=== PATIENT | female | born 1995 | race Caucasian/White ===

== ENCOUNTER 2017-10-09 02:25 | Emergency (ER) | payer OTHER ==
[~2017-10-09] VITALS: Ht 167.6 cm; Wt 124.7 kg
[~2017-10-09 02:25] MED LIST: (None)20 M1 PO; AZIT250 PO; BENTYL20 MG PO; CIPR500 PO; CIPRO500 MG PO; CLIN300 PO; CRUTCH3 XX; CYCL10 PO; Cipro250 MG PO; Cipro500 MG PO; Crutch1 EACH MISC; DIPATR PO; HYDR1TAB94 PO; IBUP600 PO; IBUP800 PO; Mobic7.5 MG PO; Naprosyn500 MG PO; Norco 5-325 Ta1 EACH PO; PRED20 PO; PROC10 PO; PROM25 PO; Pepcid40 MG PO; Percocet 5-3251 EACH PO; Prednisone20 MG PO; RANI150 PO; Synthroid88 MCG PO; Ultram50 MG PO; Vibramycin100 MG PO; Zantac150 MG PO; Zofran Odt4 MG PO; Zofran Odt4 MG SL; Zofran4 MG PO
[2018-02-25] MEDS ORDERED: Omeprazole20 M1 PO (22:43)
[2018-07-17] MEDS ORDERED: CYCL10 PO (00:54)
== END 2017-10-09 04:20 | disposition home or self-care (01) ==
LOC: ER 02:25
DX: S06.0X1A Concussion with loss of consciousness of 30 minutes or less, initial encounter (principal); S29.012A Strain of muscle and tendon of back wall of thorax, initial encounter; E11.9 Type 2 diabetes mellitus without complications; J45.909 Unspecified asthma, uncomplicated; Z88.8 Allergy status to other drugs, medicaments and biological substances; Z88.1 Allergy status to other antibiotic agents; Z88.2 Allergy status to sulfonamides; W18.2XXA Fall in (into) shower or empty bathtub, initial encounter
CPT/HCPCS: 70450; 72070; 99284

== ENCOUNTER 2017-10-16 23:28 | Emergency (ER) | payer OTHER ==
[~2017-10-16] VITALS: Ht 165.1 cm; Wt 104.3 kg
[2018-02-25] MEDS ORDERED: Omeprazole20 M1 PO (22:43)
[2018-07-17] MEDS ORDERED: CYCL10 PO (00:54)
== END 2017-10-17 00:40 | disposition home or self-care (01) ==
LOC: ER 23:28
DX: S93.601A Unspecified sprain of right foot, initial encounter (principal); J45.909 Unspecified asthma, uncomplicated; E03.9 Hypothyroidism, unspecified; E11.9 Type 2 diabetes mellitus without complications; Z90.49 Acquired absence of other specified parts of digestive tract; Z90.89 Acquired absence of other organs; Z88.8 Allergy status to other drugs, medicaments and biological substances; Z88.1 Allergy status to other antibiotic agents; Z88.2 Allergy status to sulfonamides; V49.49XA Driver injured in collision with other motor vehicles in traffic accident, initial encounter
CPT/HCPCS: 73610; 73630; 99283

== ENCOUNTER 2017-11-05 18:32 | Emergency (ER) | payer OTHER ==
[~2017-11-05] VITALS: Ht 165.1 cm; Wt 98.0 kg
[2017-11-05] MEDS ORDERED: ALBU90OI INH (20:07)
[2018-02-25] MEDS ORDERED: Omeprazole20 M1 PO (22:43)
[2018-07-17] MEDS ORDERED: CYCL10 PO (00:54)
== END 2017-11-05 20:10 | disposition home or self-care (01) ==
LOC: ER 18:32
DX: B34.9 Viral infection, unspecified (principal); J45.909 Unspecified asthma, uncomplicated; E03.9 Hypothyroidism, unspecified; E11.9 Type 2 diabetes mellitus without complications; F17.210 Nicotine dependence, cigarettes, uncomplicated; Z88.8 Allergy status to other drugs, medicaments and biological substances; Z88.1 Allergy status to other antibiotic agents; Z88.2 Allergy status to sulfonamides
CPT/HCPCS: 71046; 94640; 99283

== ENCOUNTER 2017-12-25 21:23 | Emergency (ER) | payer OTHER ==
[~2017-12-25] VITALS: Ht 167.6 cm; Wt 99.8 kg
[~2017-12-25 21:23] MED LIST changes: +ALBU90OI INH
[2017-12-25] MEDS ORDERED: CYCL10 PO (22:06)
[2018-02-25] MEDS ORDERED: Omeprazole20 M1 PO (22:43)
[2018-07-17] MEDS ORDERED: CYCL10 PO (00:54)
== END 2017-12-25 22:22 | disposition home or self-care (01) ==
LOC: ER 21:23
DX: M54.41 Lumbago with sciatica, right side (principal); J45.909 Unspecified asthma, uncomplicated; E11.9 Type 2 diabetes mellitus without complications; F17.210 Nicotine dependence, cigarettes, uncomplicated; Z88.8 Allergy status to other drugs, medicaments and biological substances; Z88.1 Allergy status to other antibiotic agents; Z88.2 Allergy status to sulfonamides; Z79.51 Long term (current) use of inhaled steroids
CPT/HCPCS: 96372; 99283; J1885

== ENCOUNTER 2018-01-28 18:19 | Emergency (ER) | payer OTHER ==
[~2018-01-28] VITALS: Ht 167.6 cm; Wt 99.8 kg
[2018-01-28 18:56] LABS: BASOPHILS ABSOLUTE AUTO 0.13 K/mm3 (0.00-0.23); BASOPHILS PERCENT AUTO 1 % (0-2); EOSINOPHILS ABSOLUTE AUTO 0.32 K/mm3 (0.00-0.68); EOSINOPHILS PERCENT AUTO 2 % (0-6); Hematocrit 40.7 % (33.0-51.0); Hemoglobin 13.3 g/dL (11.5-16.0); IMMATURE GRAN ABSOLUTE AUTO 0.04 K/mm3 (0.00-0.10); IMMATURE GRAN PERCENT AUTO 0 % (0-1); LYMPHOCYTES PERCENT AUTO 30 % (21-46); MONOCYTES ABSOLUTE AUTO 0.89 K/mm3 (0.16-1.47); MONOCYTES PERCENT AUTO 7 % (4-13); Mean Corpuscular HGB 28.1 pg (26.0-34.0); Mean Corpuscular HGB Conc 32.7 g/dL (31.5-36.5); Mean Corpuscular Volume 86 fL (80-100); Mean Platelet Volume 8.6 fL (9.1-12.4); NEUTROPHILS ABSOLUTE AUTO 7.92 K/mm3 (1.96-9.15); NEUTROPHILS PERCENT AUTO 60 % (41-73); Platelet Count 355 K/mm3 (150-400); RDW Coefficient Variation 13.3 % (11.7-14.2); RDW Standard Deviation 41.9 fL (35.1-46.3); Red Blood Cell Count 4.73 M/mm3 (3.80-5.20)
[2018-01-28 19:08] LABS: Source, Urine Clean Catch
[2018-01-28 19:11] LABS: Appearance, Urine Hazy (Clear); Bilirubin, Urine Neg (Neg); Blood, Urine 1+ (Neg); Color, Urine Yellow (P-Yellow); Glucose Qualitative, Urine Neg (Neg); Ketones, Urine 1+ (Neg); Leukocyte Esterase, Urine 1+ (Neg); Nitrite, Urine Neg (Neg); Protein, Urine 1+ (Neg); Specific Gravity, Urine 1.025 (1.003-1.022); Urobilinogen, Urine NORM (Normal)
[2018-01-28 19:20] LABS: Alanine Aminotransfer (ALT/SGP 39 U/L (12-78); Albumin, Blood 3.5 g/dL (3.4-5.0); Albumin/Globulin Ratio 0.9 (0.8-1.8); Alk Phos 67 U/L (50-136); Anion Gap 7 mmol/L (6-16); Aspartate Aminotrans (AST/SGOT 21 U/L (12-37); Bilirubin, Total 0.2 mg/dL (0.1-1.0); Blood Urea Nitrogen 8 mg/dL (8-24); Bun/Creatinine Ratio 9.4 (12.0-20.0); CO2, Blood 21 mmol/L (21-32); Chloride, Blood 112 mmol/L (98-108); Creatinine, Blood 0.85 mg/dL (0.40-1.00); Globulin, Blood 3.8 g/dL (2.2-4.0); Glomerular Filtration Rate >60 (60-); Glucose, Blood 92 mg/dL (70-99); Potassium, Blood 3.9 mmol/L (3.5-5.5); Sodium, Blood 140 mmol/L (136-145); Total Protein, Blood 7.3 g/dL (6.4-8.2); Troponin I <0.015 ng/mL (0.000-0.040)
[2018-01-28 20:02] LABS: Free Thyroxine 0.85 ng/dL (0.70-1.60)
[2018-01-28 20:03] LABS: Bacteria Many /hpf; Squamous Epithelial Cells Mod /hpf (Few)
[2018-01-28 20:05] LABS: Thyroid Stimulating Hormone 5.65 uIU/mL (0.360-4.800); Triiodothyronine, Free 2.82 pg/mL (2.18-3.98)
[2018-01-28] MEDS ORDERED: Zofran Odt4 MG PO (20:21)
== END 2018-01-28 20:28 | disposition home or self-care (01) ==
LOC: ER 18:19
PROVIDERS: Emergency Medicine
DX: R42 Dizziness and giddiness (principal); R11.2 Nausea with vomiting, unspecified; D72.829 Elevated white blood cell count, unspecified; J45.909 Unspecified asthma, uncomplicated; E11.9 Type 2 diabetes mellitus without complications; E03.9 Hypothyroidism, unspecified; F17.210 Nicotine dependence, cigarettes, uncomplicated; Z88.8 Allergy status to other drugs, medicaments and biological substances; Z88.1 Allergy status to other antibiotic agents; Z88.2 Allergy status to sulfonamides; Z79.51 Long term (current) use of inhaled steroids
CPT/HCPCS: 36415; 71046; 80053; 81001; 81025; 84439; 84443; 84481; 84484; 85025; 85379; 87086; 93005; 93010; 96361; 96374; 99283; J2405; J7030

== ENCOUNTER 2018-03-17 02:33 | Emergency (ER) | payer OTHER ==
[~2018-03-17] VITALS: Ht 167.6 cm; Wt 104.3 kg
[~2018-03-17 02:33] MED LIST changes: +Omeprazole20 M1 PO
== END 2018-03-17 05:45 | disposition home or self-care (01) ==
LOC: ER 02:33
DX: T62.8X1A Toxic effect of other specified noxious substances eaten as food, accidental (unintentional), initial encounter (principal); R11.2 Nausea with vomiting, unspecified; E11.9 Type 2 diabetes mellitus without complications; F17.210 Nicotine dependence, cigarettes, uncomplicated; Z88.8 Allergy status to other drugs, medicaments and biological substances; Z88.1 Allergy status to other antibiotic agents; Z88.2 Allergy status to sulfonamides
CPT/HCPCS: 99283

== ENCOUNTER 2018-04-29 19:09 | Emergency (ER) | payer OTHER ==
[~2018-04-29] VITALS: Ht 167.6 cm; Wt 104.3 kg
[2018-04-29 20:11] LABS: BASOPHILS PERCENT AUTO 1 % (0-2); EOSINOPHILS PERCENT AUTO 2 % (0-6); Hematocrit 39.4 % (33.0-51.0); IMMATURE GRAN ABSOLUTE AUTO 0.04 K/mm3 (0.00-0.10); IMMATURE GRAN PERCENT AUTO 0 % (0-1); LYMPHOCYTES ABSOLUTE AUTO 3.63 K/mm3 (0.84-5.20); LYMPHOCYTES PERCENT AUTO 27 % (21-46); MONOCYTES ABSOLUTE AUTO 0.89 K/mm3 (0.16-1.47); MONOCYTES PERCENT AUTO 7 % (4-13); Mean Corpuscular HGB 28.3 pg (26.0-34.0); Mean Corpuscular Volume 86 fL (80-100); Mean Platelet Volume 8.6 fL (9.1-12.4); NEUTROPHILS PERCENT AUTO 64 % (41-73); Platelet Count 352 K/mm3 (150-400); RDW Coefficient Variation 13.3 % (11.7-14.2); RDW Standard Deviation 41.3 fL (35.1-46.3); White Blood Cell Count 13.56 K/mm3 (4.00-11.30)
[2018-04-29 20:32] LABS: Alanine Aminotransfer (ALT/SGP 28 U/L (12-78); Albumin, Blood 3.5 g/dL (3.4-5.0); Albumin/Globulin Ratio 0.9 (0.8-1.8); Alk Phos 68 U/L (50-136); Anion Gap 9 mmol/L (6-16); Aspartate Aminotrans (AST/SGOT 20 U/L (12-37); Bilirubin, Total 0.1 mg/dL (0.1-1.0); Blood Urea Nitrogen 13 mg/dL (8-24); Bun/Creatinine Ratio 15.2 (12.0-20.0); CO2, Blood 22 mmol/L (21-32); Calcium, Blood 8.2 mg/dL (8.5-10.1); Chloride, Blood 106 mmol/L (98-108); Creatinine, Blood 0.86 mg/dL (0.40-1.00); Globulin, Blood 3.8 g/dL (2.2-4.0); Glomerular Filtration Rate >60 (60-); Glucose, Blood 86 mg/dL (70-99); Potassium, Blood 4.4 mmol/L (3.5-5.5); Sodium, Blood 137 mmol/L (136-145); Total Protein, Blood 7.3 g/dL (6.4-8.2)
[2018-04-29] MEDS ORDERED: COMPAZINE10 MG PO (20:39)
== END 2018-04-29 21:16 | disposition home or self-care (01) ==
LOC: ER 19:09
PROVIDERS: Emergency Medicine
DX: R10.12 Left upper quadrant pain (principal); K64.9 Unspecified hemorrhoids; J45.909 Unspecified asthma, uncomplicated; E03.9 Hypothyroidism, unspecified; E11.9 Type 2 diabetes mellitus without complications; F17.210 Nicotine dependence, cigarettes, uncomplicated; Z79.899 Other long term (current) drug therapy
CPT/HCPCS: 36415; 46600; 80053; 83690; 85025; 96361; 96374; 96375; 99284-25; J0780; J1200; J3010; J7030

== ENCOUNTER 2018-05-14 23:04 | Emergency (ER) | payer OTHER ==
[~2018-05-14] VITALS: Ht 167.6 cm; Wt 104.3 kg
[~2018-05-14 23:04] MED LIST changes: +COMPAZINE10 MG PO
[2018-05-15 01:53] LABS: BASOPHILS ABSOLUTE AUTO 0.11 K/mm3 (0.00-0.23); BASOPHILS PERCENT AUTO 1 % (0-2); EOSINOPHILS ABSOLUTE AUTO 0.18 K/mm3 (0.00-0.68); EOSINOPHILS PERCENT AUTO 1 % (0-6); Hematocrit 38.5 % (33.0-51.0); Hemoglobin 12.8 g/dL (11.5-16.0); IMMATURE GRAN ABSOLUTE AUTO 0.06 K/mm3 (0.00-0.10); IMMATURE GRAN PERCENT AUTO 0 % (0-1); LYMPHOCYTES ABSOLUTE AUTO 4.37 K/mm3 (0.84-5.20); LYMPHOCYTES PERCENT AUTO 24 % (21-46); MONOCYTES ABSOLUTE AUTO 1.41 K/mm3 (0.16-1.47); MONOCYTES PERCENT AUTO 8 % (4-13); Mean Corpuscular HGB 28.2 pg (26.0-34.0); Mean Corpuscular HGB Conc 33.2 g/dL (31.5-36.5); Mean Corpuscular Volume 85 fL (80-100); Mean Platelet Volume 8.4 fL (9.1-12.4); NEUTROPHILS PERCENT AUTO 66 % (41-73); Platelet Count 334 K/mm3 (150-400); RDW Coefficient Variation 13.4 % (11.7-14.2); RDW Standard Deviation 41.7 fL (35.1-46.3); Red Blood Cell Count 4.54 M/mm3 (3.80-5.20); White Blood Cell Count 17.93 K/mm3 (4.00-11.30)
[2018-05-15 02:10] LABS: Alanine Aminotransfer (ALT/SGP 34 U/L (12-78); Albumin, Blood 3.7 g/dL (3.4-5.0); Alk Phos 71 U/L (50-136); Anion Gap 9 mmol/L (6-16); Aspartate Aminotrans (AST/SGOT 18 U/L (12-37); Bilirubin, Total 0.3 mg/dL (0.1-1.0); Blood Urea Nitrogen 9 mg/dL (8-24); Bun/Creatinine Ratio 12.3 (12.0-20.0); CO2, Blood 22 mmol/L (21-32); Calcium, Blood 8.2 mg/dL (8.5-10.1); Chloride, Blood 107 mmol/L (98-108); Creatinine, Blood 0.73 mg/dL (0.40-1.00); Globulin, Blood 3.6 g/dL (2.2-4.0); Glomerular Filtration Rate >60 (60-); Glucose, Blood 79 mg/dL (70-99); Potassium, Blood 3.9 mmol/L (3.5-5.5); Sodium, Blood 138 mmol/L (136-145); Total Protein, Blood 7.3 g/dL (6.4-8.2)
[2018-05-15] MEDS ORDERED: Robaxin500 MG PO (03:29)
== END 2018-05-15 03:39 | disposition home or self-care (01) ==
LOC: ER 23:04
PROVIDERS: Emergency Medicine
DX: M54.5 Low back pain (principal); M79.604 Pain in right leg; M79.605 Pain in left leg; J45.909 Unspecified asthma, uncomplicated; E03.9 Hypothyroidism, unspecified; E11.9 Type 2 diabetes mellitus without complications; F17.210 Nicotine dependence, cigarettes, uncomplicated; Z88.8 Allergy status to other drugs, medicaments and biological substances; Z88.2 Allergy status to sulfonamides; Z88.1 Allergy status to other antibiotic agents
CPT/HCPCS: 36415; 80053; 81000; 81025; 85025; 85651; 99283

== ENCOUNTER 2018-05-29 19:45 | Emergency (ER) | payer OTHER ==
[~2018-05-29] VITALS: Ht 167.6 cm; Wt 104.3 kg
[~2018-05-29 19:45] MED LIST changes: +Robaxin500 MG PO
== END 2018-05-29 20:30 | disposition home or self-care (01) ==
LOC: ER 19:45
DX: S61.411A Laceration without foreign body of right hand, initial encounter (principal); W26.8XXA Contact with other sharp object(s), not elsewhere classified, initial encounter; Z88.8 Allergy status to other drugs, medicaments and biological substances; Z88.2 Allergy status to sulfonamides; Z88.1 Allergy status to other antibiotic agents; J45.909 Unspecified asthma, uncomplicated; E03.9 Hypothyroidism, unspecified; E11.9 Type 2 diabetes mellitus without complications; F17.200 Nicotine dependence, unspecified, uncomplicated
CPT/HCPCS: 12001; 99282

== ENCOUNTER 2018-06-05 22:08 | Emergency (ER) | payer OTHER ==
[~2018-06-05] VITALS: Ht 167.6 cm; Wt 106.1 kg
[2018-06-05 23:52] LABS: Anion Gap 8 mmol/L (6-16); Blood Urea Nitrogen 14 mg/dL (8-24); Bun/Creatinine Ratio 17.4 (12.0-20.0); CO2, Blood 22 mmol/L (21-32); Calcium, Blood 8.2 mg/dL (8.5-10.1); Chloride, Blood 107 mmol/L (98-108); Glomerular Filtration Rate >60 (60-); Glucose, Blood 97 mg/dL (70-99); Potassium, Blood 4.3 mmol/L (3.5-5.5); Sodium, Blood 137 mmol/L (136-145)
[2018-06-06] MEDS ORDERED: Zofran Odt4 MG PO (01:17)
[2018-06-06] MEDS ORDERED: Augmentin 875-1 EACH PO (01:17)
== END 2018-06-06 02:22 | disposition home or self-care (01) ==
LOC: ER 22:08
PROVIDERS: Emergency Medicine
DX: J18.9 Pneumonia, unspecified organism (principal); R11.2 Nausea with vomiting, unspecified; E11.9 Type 2 diabetes mellitus without complications; F17.210 Nicotine dependence, cigarettes, uncomplicated; Z88.8 Allergy status to other drugs, medicaments and biological substances; Z88.1 Allergy status to other antibiotic agents; Z88.2 Allergy status to sulfonamides
CPT/HCPCS: 36415; 71046; 80048; 81000; 81025; 94640; 96361; 96374; 96375; 99284-25; J2405; J2930; J7030

== ENCOUNTER 2018-06-10 20:41 | Observation (INO) | payer OTHER ==
[~2018-06-10] VITALS: Ht 167.6 cm; Wt 113.5 kg
[~2018-06-10 20:41] MED LIST changes: +Augmentin 875-1 EACH PO
[2018-06-10] MEDS ORDERED: PRED20 PO (20:47)
[2018-06-10 21:33] LABS: BASOPHILS ABSOLUTE AUTO 0.11 K/mm3 (0.00-0.23); BASOPHILS PERCENT AUTO 1 % (0-2); EOSINOPHILS PERCENT AUTO 0 % (0-6); Hematocrit 41.2 % (33.0-51.0); Hemoglobin 13.8 g/dL (11.5-16.0); IMMATURE GRAN ABSOLUTE AUTO 0.19 K/mm3 (0.00-0.10); IMMATURE GRAN PERCENT AUTO 1 % (0-1); LYMPHOCYTES PERCENT AUTO 12 % (21-46); MONOCYTES ABSOLUTE AUTO 0.86 K/mm3 (0.16-1.47); MONOCYTES PERCENT AUTO 4 % (4-13); Mean Corpuscular HGB 28.1 pg (26.0-34.0); Mean Corpuscular HGB Conc 33.5 g/dL (31.5-36.5); Mean Corpuscular Volume 84 fL (80-100); Mean Platelet Volume 8.3 fL (9.1-12.4); NEUTROPHILS ABSOLUTE AUTO 20.14 K/mm3 (1.96-9.15); NEUTROPHILS PERCENT AUTO 83 % (41-73); Platelet Count 395 K/mm3 (150-400); RDW Standard Deviation 39.8 fL (35.1-46.3); Red Blood Cell Count 4.91 M/mm3 (3.80-5.20)
[2018-06-10 21:38] LABS: Alanine Aminotransfer (ALT/SGP 38 U/L (12-78); Albumin, Blood 3.6 g/dL (3.4-5.0); Albumin/Globulin Ratio 0.9 (0.8-1.8); Alk Phos 70 U/L (50-136); Anion Gap 10 mmol/L (6-16); Aspartate Aminotrans (AST/SGOT 14 U/L (12-37); Bilirubin, Total 0.2 mg/dL (0.1-1.0); Blood Urea Nitrogen 16 mg/dL (8-24); Bun/Creatinine Ratio 19.2 (12.0-20.0); CO2, Blood 21 mmol/L (21-32); Calcium, Blood 7.9 mg/dL (8.5-10.1); Chloride, Blood 107 mmol/L (98-108); Creatinine, Blood 0.83 mg/dL (0.40-1.00); Glomerular Filtration Rate >60 (60-); Glucose, Blood 101 mg/dL (70-99); Potassium, Blood 4.3 mmol/L (3.5-5.5); Sodium, Blood 138 mmol/L (136-145); Total Protein, Blood 7.6 g/dL (6.4-8.2)
[2018-06-11] MEDS ORDERED: Vitamin C100 M1 PO (00:17)
[2018-06-11 04:45] LABS: Hematocrit 40.8 % (33.0-51.0); Hemoglobin 13.5 g/dL (11.5-16.0); Mean Corpuscular HGB 27.5 pg (26.0-34.0); Mean Corpuscular HGB Conc 33.1 g/dL (31.5-36.5); Mean Corpuscular Volume 83 fL (80-100); Mean Platelet Volume 8.2 fL (9.1-12.4); Platelet Count 390 K/mm3 (150-400); RDW Standard Deviation 39.2 fL (35.1-46.3); Red Blood Cell Count 4.91 M/mm3 (3.80-5.20); White Blood Cell Count 25.46 K/mm3 (4.00-11.30)
[2018-06-11 04:48] LABS: Adenovirus Not Detected (NOT DETECT); Bordetella pertussis Not Detected (NOT DETECT); Chlamydophila pneumoniae Not Detected (NOT DETECT); Coronavirus 229E Not Detected (NOT DETECT); Coronavirus HKU1 Not Detected (NOT DETECT); Coronavirus NL63 Not Detected (NOT DETECT); Coronavirus OC43 Not Detected (NOT DETECT); Human Metapneumovirus Not Detected (NOT DETECT); Influenza A/2009-H1 Not Detected (NOT DETECT); Influenza A/H1 Not Detected (NOT DETECT); Influenza A/H3 Not Detected (NOT DETECT); Influenza B Not Detected (NOT DETECT); Mycoplasma pneumoniae Not Detected (NOT DETECT); Parainfluenza Virus 1 Not Detected (NOT DETECT); Parainfluenza Virus 2 Not Detected (NOT DETECT); Parainfluenza Virus 3 Not Detected (NOT DETECT); Parainfluenza Virus 4 Not Detected (NOT DETECT); Respiratory Syncytial Virus Not Detected (NOT DETECT)
[2018-06-11 08:41] LABS: Human Rhinovirus/Enterovirus Detected (NOT DETECT); Influenza A Not Detected (NOT DETECT)
[2018-06-12] MEDS ORDERED: ALBU90OI INH (10:49)
== END 2018-06-12 11:44 | disposition home or self-care (01) ==
LOC: ER 20:41 → MEDS 23:09 → ENPENDDIS 06-12 09:00 → MEDS 06-12 11:44
PROVIDERS: Emergency Medicine; Internal Medicine
DX: J45.901 Unspecified asthma with (acute) exacerbation (principal); J20.9 Acute bronchitis, unspecified; E03.9 Hypothyroidism, unspecified; E11.9 Type 2 diabetes mellitus without complications; D84.9 Immunodeficiency, unspecified; F17.210 Nicotine dependence, cigarettes, uncomplicated; Z88.2 Allergy status to sulfonamides; Z88.1 Allergy status to other antibiotic agents; Z88.8 Allergy status to other drugs, medicaments and biological substances; Z87.01 Personal history of pneumonia (recurrent)
CPT/HCPCS: 36415; 71046; 80053; 85025; 85027; 87486; 87581; 87633; 87798; 94640; 94760; 96374; 96375; 96376; 99285-25; G0378; J2405; J2930

== ENCOUNTER 2018-10-10 21:28 | Emergency (ER) | payer OTHER ==
[~2018-10-10] VITALS: Ht 167.6 cm; Wt 99.8 kg
[~2018-10-10 21:28] MED LIST changes: +Vitamin C100 M1 PO
[2018-10-10 22:05] LABS: BASOPHILS ABSOLUTE AUTO 0.14 K/mm3 (0.00-0.23); BASOPHILS PERCENT AUTO 1 % (0-2); EOSINOPHILS PERCENT AUTO 1 % (0-6); Hematocrit 39.9 % (33.0-51.0); Hemoglobin 12.9 g/dL (11.5-16.0); IMMATURE GRAN ABSOLUTE AUTO 0.06 K/mm3 (0.00-0.10); IMMATURE GRAN PERCENT AUTO 0 % (0-1); LYMPHOCYTES ABSOLUTE AUTO 3.81 K/mm3 (0.84-5.20); LYMPHOCYTES PERCENT AUTO 25 % (21-46); MONOCYTES ABSOLUTE AUTO 0.89 K/mm3 (0.16-1.47); MONOCYTES PERCENT AUTO 6 % (4-13); Mean Corpuscular HGB 27.6 pg (26.0-34.0); Mean Corpuscular HGB Conc 32.3 g/dL (31.5-36.5); Mean Corpuscular Volume 85 fL (80-100); Mean Platelet Volume 8.4 fL (9.1-12.4); NEUTROPHILS ABSOLUTE AUTO 10.47 K/mm3 (1.96-9.15); NEUTROPHILS PERCENT AUTO 67 % (41-73); Platelet Count 376 K/mm3 (150-400); RDW Coefficient Variation 13.6 % (11.7-14.2); RDW Standard Deviation 42.8 fL (35.1-46.3); Red Blood Cell Count 4.67 M/mm3 (3.80-5.20); White Blood Cell Count 15.57 K/mm3 (4.00-11.30)
[2018-10-10 22:22] LABS: Alanine Aminotransfer (ALT/SGP 29 U/L (12-78); Albumin/Globulin Ratio 1.1 (0.8-1.8); Alk Phos 71 U/L (50-136); Anion Gap 10 mmol/L (6-16); Aspartate Aminotrans (AST/SGOT 14 U/L (12-37); Bilirubin, Total 0.2 mg/dL (0.1-1.0); Blood Urea Nitrogen 10 mg/dL (8-24); Bun/Creatinine Ratio 13.5 (12.0-20.0); CO2, Blood 22 mmol/L (21-32); Calcium, Blood 8.5 mg/dL (8.5-10.1); Chloride, Blood 104 mmol/L (98-108); Creatinine, Blood 0.74 mg/dL (0.40-1.00); Globulin, Blood 3.6 g/dL (2.2-4.0); Glomerular Filtration Rate >60 (60-); Glucose, Blood 85 mg/dL (70-99); Potassium, Blood 3.7 mmol/L (3.5-5.5); Sodium, Blood 136 mmol/L (136-145); Total Protein, Blood 7.6 g/dL (6.4-8.2)
[2018-10-10 22:32] LABS: Source, Urine Clean Catch
[2018-10-10 22:36] LABS: Bilirubin, Urine Neg (Neg); Blood, Urine Neg (Neg); Glucose Qualitative, Urine Neg (Neg); Ketones, Urine Neg (Neg); Leukocyte Esterase, Urine 1+ (Neg); Nitrite, Urine Neg (Neg); Protein, Urine Neg (Neg); Specific Gravity, Urine 1.005 (1.003-1.022); Urobilinogen, Urine NORM (Normal)
[2018-10-10 22:37] LABS: Appearance, Urine Hazy (Clear); Color, Urine Pale Yellow (P-Yellow)
[2018-10-10 22:43] LABS: Bacteria Few /hpf; Red Blood Cells, Urine Not Seen /hpf (0-2); Squamous Epithelial Cells Many /hpf (Few); White Blood Cells, Urine 0-2 /hpf (0-5)
[2018-10-10 22:51] LABS: Influenza A Negative (NEGATIVE); Influenza B Negative (NEGATIVE)
[2018-10-10] MEDS ORDERED: Zofran4 MG PO (23:05)
== END 2018-10-10 23:40 | disposition home or self-care (01) ==
LOC: ER 21:28
PROVIDERS: Emergency Medicine
DX: J06.9 Acute upper respiratory infection, unspecified (principal); Z88.8 Allergy status to other drugs, medicaments and biological substances; Z88.2 Allergy status to sulfonamides; Z88.1 Allergy status to other antibiotic agents; E11.9 Type 2 diabetes mellitus without complications; F17.210 Nicotine dependence, cigarettes, uncomplicated
CPT/HCPCS: 36415; 71046; 80053; 81001; 81025; 85025; 87086; 87804; 94640; 96361; 96374; 99284-25; J2405; J7030

== ENCOUNTER 2019-04-30 14:42 | Emergency (ER) | payer OTHER, BC ==
[~2019-04-30] VITALS: Ht 167.6 cm; Wt 95.2 kg
[2019-04-30] MEDS ORDERED: IBUP600 PO (16:05)
== END 2019-04-30 16:12 | disposition home or self-care (01) ==
LOC: ER 14:42
DX: S46.011A Strain of muscle(s) and tendon(s) of the rotator cuff of right shoulder, initial encounter (principal); X50.0XXA Overexertion from strenuous movement or load, initial encounter; Z88.8 Allergy status to other drugs, medicaments and biological substances; Z88.1 Allergy status to other antibiotic agents; Z88.2 Allergy status to sulfonamides; E11.9 Type 2 diabetes mellitus without complications; F17.210 Nicotine dependence, cigarettes, uncomplicated
CPT/HCPCS: 73030; 81025; 96372; 99283-25; J1885

== ENCOUNTER 2019-09-27 13:24 | Emergency (ER) | payer BC ==
[~2019-09-27] VITALS: Ht 167.6 cm; Wt 99.8 kg
[2019-09-27 14:24] LABS: Alanine Aminotransfer (ALT/SGP 30 U/L (12-78); Albumin, Blood 3.8 g/dL (3.4-5.0); Albumin/Globulin Ratio 1.1 (0.8-1.8); Alk Phos 65 U/L (50-136); Anion Gap 8 mmol/L (6-16); Aspartate Aminotrans (AST/SGOT 17 U/L (12-37); Bilirubin, Total 0.3 mg/dL (0.1-1.0); Blood Urea Nitrogen 12 mg/dL (8-24); Bun/Creatinine Ratio 21.5 (12.0-20.0); CO2, Blood 21 mmol/L (21-32); Calcium, Blood 8.4 mg/dL (8.5-10.1); Chloride, Blood 110 mmol/L (98-108); Creatinine, Blood 0.56 mg/dL (0.40-1.00); Globulin, Blood 3.5 g/dL (2.2-4.0); Glomerular Filtration Rate >60 (60-); Glucose, Blood 88 mg/dL (70-99); Potassium, Blood 4.2 mmol/L (3.5-5.5); Sodium, Blood 139 mmol/L (136-145); Total Protein, Blood 7.3 g/dL (6.4-8.2)
[2019-09-27 14:31] LABS: BASOPHILS ABSOLUTE AUTO 0.11 K/mm3 (0.00-0.23); BASOPHILS PERCENT AUTO 1 % (0-2); EOSINOPHILS ABSOLUTE AUTO 0.18 K/mm3 (0.00-0.68); EOSINOPHILS PERCENT AUTO 1 % (0-6); Hematocrit 38.9 % (33.0-51.0); Hemoglobin 12.5 g/dL (11.5-16.0); IMMATURE GRAN ABSOLUTE AUTO 0.02 K/mm3 (0.00-0.10); IMMATURE GRAN PERCENT AUTO 0 % (0-1); LYMPHOCYTES ABSOLUTE AUTO 2.21 K/mm3 (0.84-5.20); LYMPHOCYTES PERCENT AUTO 18 % (21-46); MONOCYTES ABSOLUTE AUTO 0.87 K/mm3 (0.16-1.47); MONOCYTES PERCENT AUTO 7 % (4-13); Mean Corpuscular HGB 27.7 pg (26.0-34.0); Mean Corpuscular HGB Conc 32.1 g/dL (31.5-36.5); Mean Corpuscular Volume 86 fL (80-100); Mean Platelet Volume 8.9 fL (9.1-12.4); NEUTROPHILS ABSOLUTE AUTO 9.15 K/mm3 (1.96-9.15); NEUTROPHILS PERCENT AUTO 73 % (41-73); Platelet Count 335 K/mm3 (150-400); RDW Coefficient Variation 13.4 % (11.7-14.2); RDW Standard Deviation 42.5 fL (35.1-46.3); Red Blood Cell Count 4.51 M/mm3 (3.80-5.20); White Blood Cell Count 12.54 K/mm3 (4.00-11.30)
[2019-09-27 15:56] LABS: Source, Urine Clean Catch
[2019-09-27 16:01] LABS: Appearance, Urine Clear (Clear); Bilirubin, Urine Neg (Neg); Blood, Urine Neg (Neg); Color, Urine Yellow (P-Yellow); Glucose Qualitative, Urine Neg (Neg); Ketones, Urine Neg (Neg); Leukocyte Esterase, Urine Neg (Neg); Nitrite, Urine Neg (Neg); Protein, Urine Neg (Neg); Urobilinogen, Urine NORM (Normal)
[2019-10-30] MEDS ORDERED: ACET325 PO (11:19)
[2019-10-30] MEDS ORDERED: CALCIUM 600 +1 EA11 PO (11:20)
[2019-10-30] MEDS ORDERED: LIDOCAINE PAIN1 EACH TOP (11:22)
[2019-10-31] MEDS ORDERED: Elemental Calc600 MG PO (11:29)
[2019-10-31] MEDS ORDERED: PROM25 PO (11:30)
[2019-10-31] MEDS ORDERED: ONDA4ODT (11:30)
== END 2019-09-27 16:48 | disposition home or self-care (01) ==
LOC: ER 13:24
PROVIDERS: Emergency Medicine; Physician Assistant
DX: R55 Syncope and collapse (principal); J45.909 Unspecified asthma, uncomplicated; E03.9 Hypothyroidism, unspecified; E11.9 Type 2 diabetes mellitus without complications; F17.210 Nicotine dependence, cigarettes, uncomplicated; Z88.8 Allergy status to other drugs, medicaments and biological substances; Z88.1 Allergy status to other antibiotic agents; Z88.2 Allergy status to sulfonamides
CPT/HCPCS: 36415; 80053; 81003; 81025; 83690; 85025; 93005; 93010; 96361; 96374; 99285-25; J2405; J7030

== ENCOUNTER → 2019-10-09 | Outpatient (CLI) | payer BC ==
[~2019-10-09] MED LIST changes: +ACET325 PO; +CALCIUM 600 +1 EA11 PO; +Elemental Calc600 MG PO; +LIDOCAINE PAIN1 EACH TOP; +ONDA4ODT
[2019-10-09 15:50] LABS: BASOPHILS ABSOLUTE AUTO 0.09 K/mm3 (0.00-0.23); BASOPHILS PERCENT AUTO 1 % (0-2); EOSINOPHILS ABSOLUTE AUTO 0.28 K/mm3 (0.00-0.68); EOSINOPHILS PERCENT AUTO 2 % (0-6); Hematocrit 42.4 % (33.0-51.0); Hemoglobin 13.7 g/dL (11.5-16.0); IMMATURE GRAN ABSOLUTE AUTO 0.04 K/mm3 (0.00-0.10); IMMATURE GRAN PERCENT AUTO 0 % (0-1); LYMPHOCYTES ABSOLUTE AUTO 2.49 K/mm3 (0.84-5.20); LYMPHOCYTES PERCENT AUTO 20 % (21-46); MONOCYTES ABSOLUTE AUTO 0.95 K/mm3 (0.16-1.47); MONOCYTES PERCENT AUTO 7 % (4-13); Mean Corpuscular HGB 27.3 pg (26.0-34.0); Mean Corpuscular HGB Conc 32.3 g/dL (31.5-36.5); Mean Corpuscular Volume 85 fL (80-100); Mean Platelet Volume 9.1 fL (9.1-12.4); NEUTROPHILS ABSOLUTE AUTO 8.95 K/mm3 (1.96-9.15); NEUTROPHILS PERCENT AUTO 70 % (41-73); Platelet Count 333 K/mm3 (150-400); RDW Coefficient Variation 13.5 % (11.7-14.2); Red Blood Cell Count 5.02 M/mm3 (3.80-5.20)
[2019-10-09 16:08] LABS: Alanine Aminotransfer (ALT/SGP 41 U/L (12-78); Albumin, Blood 3.7 g/dL (3.4-5.0); Albumin/Globulin Ratio 0.9 (0.8-1.8); Alk Phos 65 U/L (50-136); Anion Gap 7 mmol/L (6-16); Aspartate Aminotrans (AST/SGOT 14 U/L (12-37); Bilirubin, Total 0.4 mg/dL (0.1-1.0); Blood Urea Nitrogen 8 mg/dL (8-24); Bun/Creatinine Ratio 12.4 (12.0-20.0); CO2, Blood 23 mmol/L (21-32); Calcium, Blood 8.4 mg/dL (8.5-10.1); Chloride, Blood 107 mmol/L (98-108); Creatinine, Blood 0.65 mg/dL (0.40-1.00); Glomerular Filtration Rate >60 (60-); Glucose, Blood 80 mg/dL (70-99); Magnesium, Blood 2.8 mg/dL (1.6-2.4); Potassium, Blood 3.9 mmol/L (3.5-5.5); Sodium, Blood 137 mmol/L (136-145); Total Protein, Blood 7.7 g/dL (6.4-8.2)
== END ==
LOC: LAB SHORT 15:00 → LAB 15:00
PROVIDERS: Physician Assistant
DX: R42 Dizziness and giddiness (principal)
CPT/HCPCS: 80053; 83690; 83735; 85025

== ENCOUNTER 2019-10-15 14:55 | Emergency (ER) | payer BC ==
[~2019-10-15] VITALS: Ht 167.6 cm; Wt 117.9 kg
[~2019-10-15 14:55] MED LIST changes: -ACET325 PO; -CALCIUM 600 +1 EA11 PO; -Elemental Calc600 MG PO; -LIDOCAINE PAIN1 EACH TOP; -ONDA4ODT
[2019-10-15 16:22] LABS: BASOPHILS PERCENT AUTO 1 % (0-2); EOSINOPHILS ABSOLUTE AUTO 0.22 K/mm3 (0.00-0.68); EOSINOPHILS PERCENT AUTO 2 % (0-6); Hematocrit 39.6 % (33.0-51.0); Hemoglobin 12.7 g/dL (11.5-16.0); IMMATURE GRAN ABSOLUTE AUTO 0.03 K/mm3 (0.00-0.10); IMMATURE GRAN PERCENT AUTO 0 % (0-1); LYMPHOCYTES ABSOLUTE AUTO 3.07 K/mm3 (0.84-5.20); LYMPHOCYTES PERCENT AUTO 27 % (21-46); MONOCYTES ABSOLUTE AUTO 0.77 K/mm3 (0.16-1.47); MONOCYTES PERCENT AUTO 7 % (4-13); Mean Corpuscular HGB 27.1 pg (26.0-34.0); Mean Corpuscular HGB Conc 32.1 g/dL (31.5-36.5); Mean Corpuscular Volume 85 fL (80-100); NEUTROPHILS ABSOLUTE AUTO 7.36 K/mm3 (1.96-9.15); NEUTROPHILS PERCENT AUTO 64 % (41-73); Platelet Count 333 K/mm3 (150-400); RDW Coefficient Variation 13.4 % (11.7-14.2); RDW Standard Deviation 41.6 fL (35.1-46.3); Red Blood Cell Count 4.68 M/mm3 (3.80-5.20); White Blood Cell Count 11.55 K/mm3 (4.00-11.30)
[2019-10-15 16:48] LABS: Alanine Aminotransfer (ALT/SGP 41 U/L (12-78); Albumin, Blood 3.5 g/dL (3.4-5.0); Albumin/Globulin Ratio 0.9 (0.8-1.8); Alk Phos 60 U/L (50-136); Anion Gap 8 mmol/L (6-16); Aspartate Aminotrans (AST/SGOT 15 U/L (12-37); Bilirubin, Total 0.3 mg/dL (0.1-1.0); Blood Urea Nitrogen 10 mg/dL (8-24); Bun/Creatinine Ratio 13.6 (12.0-20.0); CO2, Blood 23 mmol/L (21-32); Calcium, Blood 8.2 mg/dL (8.5-10.1); Chloride, Blood 109 mmol/L (98-108); Creatinine, Blood 0.74 mg/dL (0.40-1.00); Globulin, Blood 3.7 g/dL (2.2-4.0); Glomerular Filtration Rate >60 (60-); Glucose, Blood 87 mg/dL (70-99); Potassium, Blood 3.8 mmol/L (3.5-5.5); Sodium, Blood 140 mmol/L (136-145); Total Protein, Blood 7.2 g/dL (6.4-8.2); Troponin I <0.015 ng/mL (0.000-0.040)
[2019-10-30] MEDS ORDERED: ACET325 PO (11:19)
[2019-10-30] MEDS ORDERED: CALCIUM 600 +1 EA11 PO (11:20)
[2019-10-30] MEDS ORDERED: LIDOCAINE PAIN1 EACH TOP (11:22)
[2019-10-31] MEDS ORDERED: Elemental Calc600 MG PO (11:29)
[2019-10-31] MEDS ORDERED: ONDA4ODT (11:30)
[2019-10-31] MEDS ORDERED: PROM25 PO (11:30)
== END 2019-10-15 19:48 | disposition home or self-care (01) ==
LOC: ER 14:55
PROVIDERS: Physician Assistant
DX: R42 Dizziness and giddiness (principal); R55 Syncope and collapse; Z88.8 Allergy status to other drugs, medicaments and biological substances; Z88.1 Allergy status to other antibiotic agents; Z88.2 Allergy status to sulfonamides; E11.9 Type 2 diabetes mellitus without complications
CPT/HCPCS: 36415; 70450; 80053; 83690; 84443; 84484; 84703; 85025; 93005; 93010; 99284-25

== ENCOUNTER 2019-11-18 13:24 | Observation (INO) | payer BC ==
[~2019-11-18] VITALS: Ht 167.6 cm; Wt 119.0 kg
[~2019-11-18 13:24] MED LIST changes: +ACET325 PO; +CALCIUM 600 +1 EA11 PO; +Elemental Calc600 MG PO; +LIDOCAINE PAIN1 EACH TOP; +ONDA4ODT
[2019-11-18 18:23] LABS: Source, Urine Clean Catch
[2019-11-18 18:26] LABS: Appearance, Urine Hazy (Clear); Bilirubin, Urine Neg (Neg); Blood, Urine 1+ (Neg); Color, Urine Yellow (P-Yellow); Glucose Qualitative, Urine Neg (Neg); Ketones, Urine Neg (Neg); Leukocyte Esterase, Urine Neg (Neg); Nitrite, Urine Neg (Neg); Protein, Urine Neg (Neg); Urobilinogen, Urine NORM (Normal)
[2019-11-18 18:35] LABS: BASOPHILS ABSOLUTE AUTO 0.08 K/mm3 (0.00-0.23); BASOPHILS PERCENT AUTO 1 % (0-2); EOSINOPHILS ABSOLUTE AUTO 0.25 K/mm3 (0.00-0.68); EOSINOPHILS PERCENT AUTO 2 % (0-6); Hematocrit 39.6 % (33.0-51.0); Hemoglobin 12.7 g/dL (11.5-16.0); IMMATURE GRAN ABSOLUTE AUTO 0.03 K/mm3 (0.00-0.10); IMMATURE GRAN PERCENT AUTO 0 % (0-1); LYMPHOCYTES ABSOLUTE AUTO 3.41 K/mm3 (0.84-5.20); LYMPHOCYTES PERCENT AUTO 29 % (21-46); MONOCYTES ABSOLUTE AUTO 0.54 K/mm3 (0.16-1.47); MONOCYTES PERCENT AUTO 5 % (4-13); Mean Corpuscular HGB 27.6 pg (26.0-34.0); Mean Corpuscular HGB Conc 32.1 g/dL (31.5-36.5); Mean Corpuscular Volume 86 fL (80-100); NEUTROPHILS ABSOLUTE AUTO 7.59 K/mm3 (1.96-9.15); NEUTROPHILS PERCENT AUTO 64 % (41-73); Platelet Count 336 K/mm3 (150-400); RDW Coefficient Variation 13.9 % (11.7-14.2); RDW Standard Deviation 43.8 fL (35.1-46.3)
[2019-11-18] MEDS ORDERED: ONDA4ODT MM (18:41)
[2019-11-18 18:43] LABS: Amorphous Light (0-Heavy); Bacteria Mod /hpf; Squamous Epithelial Cells Many /hpf (Few); White Blood Cells, Urine 0-2 /hpf (0-5)
[2019-11-18 18:54] LABS: Alanine Aminotransfer (ALT/SGP 26 U/L (12-78); Albumin, Blood 3.7 g/dL (3.4-5.0); Albumin/Globulin Ratio 1.1 (0.8-1.8); Alk Phos 56 U/L (50-136); Anion Gap 6 mmol/L (6-16); Aspartate Aminotrans (AST/SGOT 11 U/L (12-37); Bilirubin, Total 0.3 mg/dL (0.1-1.0); Blood Urea Nitrogen 13 mg/dL (8-24); Bun/Creatinine Ratio 21.8 (12.0-20.0); CO2, Blood 23 mmol/L (21-32); Calcium, Blood 8.5 mg/dL (8.5-10.1); Chloride, Blood 107 mmol/L (98-108); Globulin, Blood 3.5 g/dL (2.2-4.0); Glomerular Filtration Rate >60 (60-); Glucose, Blood 100 mg/dL (70-99); Potassium, Blood 3.8 mmol/L (3.5-5.5); Sodium, Blood 136 mmol/L (136-145); Total Protein, Blood 7.2 g/dL (6.4-8.2)
--- NOTE | 2019-11-19 03:04 | NUR ---
SHIFT SUMMARY ASSUMED CARE OF PT AT 2119. PT IS A/O X3, C/O N/T IN LOWER EXTREMITIES. VITAL SIGNS STABLE, PT C/O NAUSEA, AROUND 2300 PT VOMITED CLEAR FLUIDS, MEDICATED PER EMAR. PT ALSO C/O A HEADACHE, [id number] PER EMAR, HEADACHE WENT AWAY AFTER VOMITING. PT HAD SOB AND CP AROUND 2200, VITAL SIGNS STABLE, TELEMONITORING STATED NORMAL SINUS @ 90 AT THE TIME, FEELING WENT AWAY AFTER 15MIN AND PT FELT BETTER, ZHAO STATED PT HAS HAD PREVIOUS PANICK ATTACKS, BUT THE PT STATED THAT SHE DIDNT FEEL IT WAS ANXIETY THAT TRIGGERED HER SOB/CP. HEART SOUNDS REGULAR, LUNG SOUNDS CLEAR PT QUIT SMOKING 2 MONTHS AGO. PT HAS SLEPT T/O THE NIGHT AFTER VOMITING, CALL LIGHT IN REACH, BED IN LOWEST POSTION, WILL CONTINUE TO MONITOR UNTIL DAYSHIFT NURSE ARRIVES.
[2019-11-19 04:53] LABS: BASOPHILS ABSOLUTE AUTO 0.09 K/mm3 (0.00-0.23); BASOPHILS PERCENT AUTO 1 % (0-2); EOSINOPHILS ABSOLUTE AUTO 0.28 K/mm3 (0.00-0.68); EOSINOPHILS PERCENT AUTO 2 % (0-6); Hematocrit 38.3 % (33.0-51.0); Hemoglobin 12.5 g/dL (11.5-16.0); IMMATURE GRAN ABSOLUTE AUTO 0.04 K/mm3 (0.00-0.10); IMMATURE GRAN PERCENT AUTO 0 % (0-1); LYMPHOCYTES ABSOLUTE AUTO 3.57 K/mm3 (0.84-5.20); LYMPHOCYTES PERCENT AUTO 28 % (21-46); MONOCYTES ABSOLUTE AUTO 0.86 K/mm3 (0.16-1.47); MONOCYTES PERCENT AUTO 7 % (4-13); Mean Corpuscular HGB 27.7 pg (26.0-34.0); Mean Corpuscular HGB Conc 32.6 g/dL (31.5-36.5); Mean Corpuscular Volume 85 fL (80-100); Mean Platelet Volume 8.3 fL (9.1-12.4); NEUTROPHILS ABSOLUTE AUTO 8.14 K/mm3 (1.96-9.15); NEUTROPHILS PERCENT AUTO 63 % (41-73); Platelet Count 310 K/mm3 (150-400); RDW Coefficient Variation 13.8 % (11.7-14.2); RDW Standard Deviation 43.4 fL (35.1-46.3); Red Blood Cell Count 4.52 M/mm3 (3.80-5.20); White Blood Cell Count 12.98 K/mm3 (4.00-11.30)
[2019-11-19 05:11] LABS: Anion Gap 7 mmol/L (6-16); Blood Urea Nitrogen 12 mg/dL (8-24); Bun/Creatinine Ratio 16.3 (12.0-20.0); CO2, Blood 24 mmol/L (21-32); Calcium, Blood 8.3 mg/dL (8.5-10.1); Chloride, Blood 107 mmol/L (98-108); Creatinine, Blood 0.73 mg/dL (0.40-1.00); Glomerular Filtration Rate >60 (60-); Glucose, Blood 88 mg/dL (70-99); Potassium, Blood 3.9 mmol/L (3.5-5.5); Sodium, Blood 138 mmol/L (136-145)
--- NOTE | 2019-11-19 11:19 | NUR ---
PT SITTING UP IN BED CRYING. PT NOTIFIED THAT DR PLANNED ON DISCHARGING PT TODAY. PT TEARFUL AND REPORTS SHE IS VERY DEPRESSED DUE TO THIS AND CANNOT MAKE IT ANOTHER 10 DAYS UNTIL SHE SHES NEUROSURGEON AT [facility]. PT REPORTS SHE CANT EAT, CANT SLEEP AND CANT EVEN GO TO THE BATHROOM WITHOUT PASSING OUT. 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 PT REQUESTING TO BE TRANSFERRED TO [facility]. WILL CONT TO MONITOR. PT CURRENTLY TAKEN DOWN TO IMAGING FOR BARIUM SWALLOW.
--- NOTE | 2019-11-19 14:27 | NUR ---
SPOKE WITH DR GARZA REGARDING PT CONCERNS OF DISCHARGING AND REPORTING HER PCP WANTS PT TO BE SHIPPED UP TO [facility]. PER DR GARZA HE DOES NOT HAVE A CRITICAL NEED TO TRANSFRER PT TO [facility], PT HAS AN APPT WITH A NEUROSURGEON ON THE AT [facility] AND PT WILL NEED TO MANAGE SYMPTOMS UNTIL THEN. CASE MANAGEMENT AND MYSELF WENT IN TO TALK WITH PT, PT REPORTS SHE PLANS ON HAVING HER MOM DRIVE HER UP TO [facility] TO SEE IF THEY WILL ADMIT HER. WILL DISCUSS DISCHARGE ORDERS AND WILL D/C PT PER DR GARZA.
--- NOTE | 2019-11-19 14:56 | NUR ---
DISCHARGE INSTRUCTIONS REVIEWED WITH PT, IV DC'D INTACT. PT DISCHARGED HOME WITH [facility] AT 1455.
== END 2019-11-19 14:54 | disposition home or self-care (01) ==
LOC: ER 13:24 → MEDS 13:25 → ENPENDDIS 11-19 11:27 → MEDS 11-19 14:54
PROVIDERS: Emergency Medicine; ADMIT Internal Medicine
DX: R55 Syncope and collapse (principal); E66.9 Obesity, unspecified; Z87.891 Personal history of nicotine dependence
CPT/HCPCS: 36415; 74230; 80048; 80053; 81001; 81025; 85025; 87086; 92611; 96372; 96374; 96375; 96376; 99284; A9270; C9113; G0378; J1650; J2405

== ENCOUNTER 2020-03-03 00:42 | Emergency (ER) | payer BC, OTHER ==
[~2020-03-03] VITALS: Ht 167.6 cm; Wt 129.3 kg
[~2020-03-03 00:42] MED LIST changes: +AMIT25 PO; +Ativan1 MG PO; +MOTION RELIEF25 M1 PO; +ONDA4ODT MM
[2020-03-03] MEDS ORDERED: TOPI100 PO (01:12)
[2020-03-03] MEDS ORDERED: ERGO50000 PO (01:13)
[2020-03-03] MEDS ORDERED: NAPR500 PO (01:13)
== END 2020-03-03 02:06 | disposition home or self-care (01) ==
LOC: ER 00:42
DX: G89.29 Other chronic pain (principal); M54.2 Cervicalgia; J45.909 Unspecified asthma, uncomplicated; E03.9 Hypothyroidism, unspecified; E11.9 Type 2 diabetes mellitus without complications; Z88.8 Allergy status to other drugs, medicaments and biological substances; Z88.1 Allergy status to other antibiotic agents; Z88.2 Allergy status to sulfonamides; Z79.899 Other long term (current) drug therapy
CPT/HCPCS: 96372; 99283-25; J1885

== ENCOUNTER 2020-03-10 13:25 | Emergency (ER) | payer BC, OTHER ==
[~2020-03-10] VITALS: Ht 167.6 cm; Wt 127.0 kg
[~2020-03-10 13:25] MED LIST changes: +ERGO50000 PO; +NAPR500 PO; +TOPI100 PO
== END 2020-03-10 19:34 | disposition home or self-care (01) ==
LOC: ER 13:25
DX: R55 Syncope and collapse (principal); I82.0 Budd-Chiari syndrome; G93.5 Compression of brain; J45.909 Unspecified asthma, uncomplicated; E03.9 Hypothyroidism, unspecified; E11.9 Type 2 diabetes mellitus without complications; F17.210 Nicotine dependence, cigarettes, uncomplicated; Z88.8 Allergy status to other drugs, medicaments and biological substances; Z88.1 Allergy status to other antibiotic agents; Z88.2 Allergy status to sulfonamides; Z79.899 Other long term (current) drug therapy
CPT/HCPCS: 70450; 70553; 99284-25; A9577; J2405

== ENCOUNTER 2020-12-15 14:21 | Observation (INO) | payer OTHER ==
[~2020-12-15] VITALS: Ht 165.1 cm; Wt 133.3 kg
[~2020-12-15 14:21] MED LIST changes: +EFFEXOR XR37.5 MG PO
[2020-12-15 15:03] LABS: BASOPHILS ABSOLUTE AUTO 0.05 K/mm3 (0.00-0.23); BASOPHILS PERCENT AUTO 0 % (0-2); EOSINOPHILS ABSOLUTE AUTO 0.12 K/mm3 (0.00-0.68); EOSINOPHILS PERCENT AUTO 1 % (0-6); Hematocrit 33.6 % (33.0-51.0); Hemoglobin 11.2 g/dL (11.5-16.0); IMMATURE GRAN ABSOLUTE AUTO 0.09 K/mm3 (0.00-0.10); IMMATURE GRAN PERCENT AUTO 1 % (0-1); LYMPHOCYTES ABSOLUTE AUTO 2.73 K/mm3 (0.84-5.20); LYMPHOCYTES PERCENT AUTO 16 % (21-46); MONOCYTES ABSOLUTE AUTO 1.24 K/mm3 (0.16-1.47); MONOCYTES PERCENT AUTO 7 % (4-13); Mean Corpuscular HGB 27.9 pg (26.0-34.0); Mean Corpuscular HGB Conc 33.3 g/dL (31.5-36.5); Mean Corpuscular Volume 84 fL (80-100); Mean Platelet Volume 8.4 fL (9.1-12.4); NEUTROPHILS ABSOLUTE AUTO 12.67 K/mm3 (1.96-9.15); NEUTROPHILS PERCENT AUTO 75 % (41-73); Platelet Count 297 K/mm3 (150-400); RDW Coefficient Variation 14.3 % (11.7-14.2); RDW Standard Deviation 43.9 fL (35.1-46.3); Red Blood Cell Count 4.01 M/mm3 (3.80-5.20)
[2020-12-15] MEDS ORDERED: PRENATAL TABLE1 EAC2 PO (15:05)
[2020-12-15] MEDS ORDERED: ASPIR 8181 M1 PO (15:05)
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
[2020-12-15 15:33] LABS: Influenza A, PCR NEGATIVE (NEGATIVE); Influenza B, PCR NEGATIVE (NEGATIVE); Resp Syncytial Virus, PCR NEGATIVE (NEGATIVE); SARS-Cov-2 (COVID-19) PCR, MMC NEGATIVE (NEGATIVE)
--- NOTE | 2020-12-15 15:54 | NUR ---
UP TO BATHROOM. NO NEW BLEEDING. DENIES NEED FOR PERCOCET AT THIS TIME.
--- NOTE | 2020-12-15 18:40 | NUR ---
NO NEW BLEEDING SEEN. REPORT WILL BE GIVEN TO ONCOMING SHIFT.
--- NOTE | 2020-12-16 00:11 | NUR ---
12/16/20 0010 VSS, RARELY CRAMPING; FHT 140; NO BLEEDING WHEN UP TO VOID
--- NOTE | 2020-12-16 09:01 | NUR ---
d/c home on pelvic rest with instructions
== END 2020-12-16 09:05 | disposition home or self-care (01) ==
LOC: BC 14:21 → OBS 14:21 → BC 14:22 → OBS 14:22 → BC 12-16 09:05
PROVIDERS: ADMIT Obstetrics & Gynecology
DX: O20.8 Other hemorrhage in early pregnancy (principal); O26.892 Other specified pregnancy related conditions, second trimester; O99.512 Diseases of the respiratory system complicating pregnancy, second trimester; J45.990 Exercise induced bronchospasm; R10.30 Lower abdominal pain, unspecified; R25.2 Cramp and spasm; Z3A.18 18 weeks gestation of pregnancy; Z20.822 Contact with and (suspected) exposure to COVID-19
CPT/HCPCS: 0241U; 76815; 76817; 83036; 85025; G0378

== ENCOUNTER 2021-05-19 10:16 | Emergency (ER) | payer OTHER ==
[~2021-05-19] VITALS: Ht 167.6 cm; Wt 131.5 kg
[~2021-05-19 10:16] MED LIST changes: +ASPIR 8181 M1 PO; +PRENATAL TABLE1 EAC2 PO
[2021-05-19 11:31] LABS: BASOPHILS ABSOLUTE AUTO 0.11 K/mm3 (0.00-0.23); BASOPHILS PERCENT AUTO 1 % (0-2); EOSINOPHILS ABSOLUTE AUTO 0.39 K/mm3 (0.00-0.68); EOSINOPHILS PERCENT AUTO 4 % (0-6); Hematocrit 37.7 % (33.0-51.0); Hemoglobin 11.7 g/dL (11.5-16.0); IMMATURE GRAN ABSOLUTE AUTO 0.05 K/mm3 (0.00-0.10); IMMATURE GRAN PERCENT AUTO 1 % (0-1); LYMPHOCYTES ABSOLUTE AUTO 2.19 K/mm3 (0.84-5.20); LYMPHOCYTES PERCENT AUTO 21 % (21-46); MONOCYTES ABSOLUTE AUTO 0.84 K/mm3 (0.16-1.47); MONOCYTES PERCENT AUTO 8 % (4-13); Mean Corpuscular HGB 26.1 pg (26.0-34.0); Mean Corpuscular Volume 84 fL (80-100); Mean Platelet Volume 8.1 fL (9.1-12.4); NEUTROPHILS ABSOLUTE AUTO 6.84 K/mm3 (1.96-9.15); NEUTROPHILS PERCENT AUTO 66 % (41-73); Platelet Count 395 K/mm3 (150-400); RDW Coefficient Variation 14.4 % (11.7-14.2); RDW Standard Deviation 43.9 fL (35.1-46.3); Red Blood Cell Count 4.48 M/mm3 (3.80-5.20); White Blood Cell Count 10.42 K/mm3 (4.00-11.30)
[2021-05-19 11:58] LABS: Alanine Aminotransfer (ALT/SGP 25 U/L (12-78); Albumin, Blood 2.8 g/dL (3.4-5.0); Albumin/Globulin Ratio 0.7 (0.8-1.8); Alk Phos 105 U/L (50-136); Anion Gap 3 mmol/L (6-16); Aspartate Aminotrans (AST/SGOT 16 U/L (12-37); Bilirubin, Total 0.3 mg/dL (0.1-1.0); Blood Urea Nitrogen 12 mg/dL (8-24); Bun/Creatinine Ratio 16.9 (12.0-20.0); CO2, Blood 26 mmol/L (21-32); Calcium, Blood 8.6 mg/dL (8.5-10.1); Chloride, Blood 108 mmol/L (98-108); Creatinine, Blood 0.71 mg/dL (0.40-1.00); Globulin, Blood 4.3 g/dL (2.2-4.0); Glomerular Filtration Rate >60 (60-); Glucose, Blood 79 mg/dL (70-99); Potassium, Blood 4.1 mmol/L (3.5-5.5); Sodium, Blood 137 mmol/L (136-145); Total Protein, Blood 7.1 g/dL (6.4-8.2)
[2021-05-19 12:23] LABS: Source, Urine Clean Catch
[2021-05-19 12:27] LABS: Appearance, Urine Hazy (Clear); Bilirubin, Urine Neg (Neg); Blood, Urine 4+ (Neg); Color, Urine Yellow (P-Yellow); Glucose Qualitative, Urine Neg (Neg); Ketones, Urine Neg (Neg); Leukocyte Esterase, Urine Neg (Neg); Nitrite, Urine Neg (Neg); Protein, Urine Neg (Neg); Urobilinogen, Urine NORM (Normal); pH, Urine 6.5 (5.0-8.0)
[2021-05-19 12:38] LABS: Bacteria Not Seen /hpf; Red Blood Cells, Urine 0-2 /hpf (0-2); Squamous Epithelial Cells Rare /hpf (Few); White Blood Cells, Urine Not Seen /hpf (0-5)
[2021-05-19] MEDS ORDERED: LEVO750 PO (12:41)
== END 2021-05-19 12:59 | disposition home or self-care (01) ==
LOC: ER 10:16
PROVIDERS: Emergency Medicine
DX: G89.18 Other acute postprocedural pain (principal); R10.30 Lower abdominal pain, unspecified; E11.9 Type 2 diabetes mellitus without complications; Z88.1 Allergy status to other antibiotic agents; Z88.2 Allergy status to sulfonamides; Z88.5 Allergy status to narcotic agent; Z88.8 Allergy status to other drugs, medicaments and biological substances
CPT/HCPCS: 36415; 76857; 80053; 81001; 83605; 85025; 86140; 99284-25; A9270; J7030

== ENCOUNTER 2021-10-31 16:10 | Emergency (ER) | payer OTHER ==
[~2021-10-31] VITALS: Ht 167.6 cm; Wt 127.0 kg
[~2021-10-31 16:10] MED LIST changes: +Cyclobenzaprine5 MG PO; +DEXA4 PO; +HYDROCOD/ACETAM 5-32; +LEVO750 PO; +Norethindrone0.35 MG PO; +ONDA4 PO
[2021-10-31] MEDS ORDERED: DIAZEPAM10 MG PO (18:19)
[2021-10-31] MEDS ORDERED: HYDACE10B PO (18:20)
[2021-10-31 19:39] LABS: BASOPHILS ABSOLUTE AUTO 0.12 K/mm3 (0.00-0.23); BASOPHILS PERCENT AUTO 1 % (0-2); EOSINOPHILS ABSOLUTE AUTO 0.07 K/mm3 (0.00-0.68); EOSINOPHILS PERCENT AUTO 0 % (0-6); Hematocrit 41.4 % (33.0-51.0); Hemoglobin 13.1 g/dL (11.5-16.0); IMMATURE GRAN ABSOLUTE AUTO 0.12 K/mm3 (0.00-0.10); IMMATURE GRAN PERCENT AUTO 1 % (0-1); LYMPHOCYTES ABSOLUTE AUTO 5.18 K/mm3 (0.84-5.20); LYMPHOCYTES PERCENT AUTO 30 % (21-46); MONOCYTES ABSOLUTE AUTO 0.88 K/mm3 (0.16-1.47); MONOCYTES PERCENT AUTO 5 % (4-13); Mean Corpuscular HGB Conc 31.6 g/dL (31.5-36.5); Mean Corpuscular Volume 82 fL (80-100); NEUTROPHILS ABSOLUTE AUTO 10.96 K/mm3 (1.96-9.15); NEUTROPHILS PERCENT AUTO 63 % (41-73); Platelet Count 383 K/mm3 (150-400); RDW Coefficient Variation 14.6 % (11.7-14.2); RDW Standard Deviation 43.4 fL (35.1-46.3); Red Blood Cell Count 5.03 M/mm3 (3.80-5.20); White Blood Cell Count 17.33 K/mm3 (4.00-11.30)
[2021-10-31 19:59] LABS: Alanine Aminotransfer (ALT/SGP 27 U/L (12-78); Albumin, Blood 4.3 g/dL (3.4-5.0); Alk Phos 77 U/L (50-136); Anion Gap 6 mmol/L (6-16); Aspartate Aminotrans (AST/SGOT 10 U/L (12-37); Bilirubin, Total 0.2 mg/dL (0.1-1.0); Blood Urea Nitrogen 15 mg/dL (8-24); Bun/Creatinine Ratio 18.7 (12.0-20.0); CO2, Blood 29 mmol/L (21-32); Calcium, Blood 8.9 mg/dL (8.5-10.1); Chloride, Blood 100 mmol/L (98-108); Globulin, Blood 4.5 g/dL (2.2-4.0); Glomerular Filtration Rate >60 (60-); Glucose, Blood 90 mg/dL (70-99); Potassium, Blood 3.2 mmol/L (3.5-5.5); Sodium, Blood 135 mmol/L (136-145); Total Protein, Blood 8.8 g/dL (6.4-8.2)
== END 2021-10-31 19:40 | disposition home or self-care (01) ==
LOC: ER 16:10
PROVIDERS: Physician Assistant
DX: M96.89 Other intraoperative and postprocedural complications and disorders of the musculoskeletal system (principal); J45.909 Unspecified asthma, uncomplicated; E03.9 Hypothyroidism, unspecified; E11.9 Type 2 diabetes mellitus without complications; Z88.8 Allergy status to other drugs, medicaments and biological substances; Z88.1 Allergy status to other antibiotic agents; Z88.2 Allergy status to sulfonamides; Z79.899 Other long term (current) drug therapy; Z87.891 Personal history of nicotine dependence
CPT/HCPCS: 36415; 80053; 85025; 85651; 86140; 99283

== ENCOUNTER 2022-05-24 19:13 | Emergency (ER) | payer OTHER ==
[~2022-05-24] VITALS: Ht 167.6 cm; Wt 131.5 kg
[~2022-05-24 19:13] MED LIST changes: +DIAZEPAM10 MG PO; +HYDACE10B PO; +Miralax17 GM PO
[2022-05-24] MEDS ORDERED: ASPI81CH (19:31)
[2022-05-24 20:40] LABS: Source, Urine Clean Catch
[2022-05-24 20:50] LABS: Appearance, Urine Hazy (Clear); Bilirubin, Urine Neg (Neg); Blood, Urine Neg (Neg); Color, Urine Yellow (P-Yellow); Glucose Qualitative, Urine Neg (Neg); Ketones, Urine Neg (Neg); Leukocyte Esterase, Urine Neg (Neg); Nitrite, Urine Neg (Neg); Protein, Urine 1+ (Neg); Urobilinogen, Urine NORM (Normal)
[2022-05-24 20:53] LABS: BASOPHILS ABSOLUTE AUTO 0.07 K/mm3 (0.00-0.23); BASOPHILS PERCENT AUTO 1 % (0-2); EOSINOPHILS ABSOLUTE AUTO 0.12 K/mm3 (0.00-0.68); EOSINOPHILS PERCENT AUTO 1 % (0-6); Hematocrit 36.1 % (33.0-51.0); Hemoglobin 11.8 g/dL (11.5-16.0); IMMATURE GRAN ABSOLUTE AUTO 0.05 K/mm3 (0.00-0.10); IMMATURE GRAN PERCENT AUTO 0 % (0-1); LYMPHOCYTES ABSOLUTE AUTO 3.36 K/mm3 (0.84-5.20); LYMPHOCYTES PERCENT AUTO 23 % (21-46); MONOCYTES ABSOLUTE AUTO 0.79 K/mm3 (0.16-1.47); MONOCYTES PERCENT AUTO 5 % (4-13); Mean Corpuscular HGB 26.3 pg (26.0-34.0); Mean Corpuscular HGB Conc 32.7 g/dL (31.5-36.5); Mean Corpuscular Volume 80 fL (80-100); Mean Platelet Volume 8.3 fL (9.1-12.4); NEUTROPHILS ABSOLUTE AUTO 10.27 K/mm3 (1.96-9.15); NEUTROPHILS PERCENT AUTO 70 % (41-73); Platelet Count 282 K/mm3 (150-400); RDW Coefficient Variation 16.1 % (11.7-14.2); RDW Standard Deviation 46.6 fL (35.1-46.3); Red Blood Cell Count 4.49 M/mm3 (3.80-5.20); White Blood Cell Count 14.66 K/mm3 (4.00-11.30)
[2022-05-24 21:02] LABS: Amorphous Light (0-Heavy); Bacteria Mod /hpf; Mucus Light (0-Heavy); Red Blood Cells, Urine Not Seen /hpf (0-2); Squamous Epithelial Cells Mod /hpf (Few); White Blood Cells, Urine 0-2 /hpf (0-5)
[2022-05-24 21:23] LABS: Albumin/Globulin Ratio 0.7 (0.8-1.8); Bilirubin, Total 0.2 mg/dL (0.1-1.0); Bun/Creatinine Ratio 19.9 (12.0-20.0); Calcium, Blood 8.4 mg/dL (8.5-10.1); Creatinine, Blood 0.3 mg/dL (0.40-1.00); Globulin, Blood 4.1 g/dL (2.2-4.0); Magnesium, Blood 2.6 mg/dL (1.6-2.4); Thyroid Stimulating Hormone 7.26 uIU/mL (0.360-4.800); Total Protein, Blood 7.1 g/dL (6.4-8.2)
[2022-05-24 22:33] LABS: Free Thyroxine 0.91 ng/dL (0.70-1.60)
[2022-05-24] MEDS ORDERED: MONUROL3 GM PO (23:02)
== END 2022-05-24 23:21 | disposition home or self-care (01) ==
LOC: ER 19:13
PROVIDERS: Student in an Organized Health Care Education/Training Program
DX: O9A.212 Injury, poisoning and certain other consequences of external causes complicating pregnancy, second trimester (principal); M79.671 Pain in right foot; M25.571 Pain in right ankle and joints of right foot; R55 Syncope and collapse; R82.71 Bacteriuria; O99.512 Diseases of the respiratory system complicating pregnancy, second trimester; J45.909 Unspecified asthma, uncomplicated; O99.282 Endocrine, nutritional and metabolic diseases complicating pregnancy, second trimester; E03.9 Hypothyroidism, unspecified; O24.912 Unspecified diabetes mellitus in pregnancy, second trimester; Z87.891 Personal history of nicotine dependence; Z3A.16 16 weeks gestation of pregnancy; Z79.899 Other long term (current) drug therapy; Z79.82 Long term (current) use of aspirin; W19.XXXA Unspecified fall, initial encounter
CPT/HCPCS: 36415; 73600; 73630; 80053; 81001; 83735; 84439; 84443; 85025; 93005; 93010; 99284-25

== ENCOUNTER 2022-06-14 19:02 | Emergency (ER) | payer OTHER ==
[~2022-06-14] VITALS: Ht 167.6 cm; Wt 131.5 kg
[~2022-06-14 19:02] MED LIST changes: +ASPI81CH; +MONUROL3 GM PO
[2022-06-14 19:37] LABS: BASOPHILS ABSOLUTE AUTO 0.08 K/mm3 (0.00-0.23); BASOPHILS PERCENT AUTO 0 % (0-2); EOSINOPHILS ABSOLUTE AUTO 0.19 K/mm3 (0.00-0.68); EOSINOPHILS PERCENT AUTO 1 % (0-6); Hematocrit 37.4 % (33.0-51.0); IMMATURE GRAN ABSOLUTE AUTO 0.09 K/mm3 (0.00-0.10); IMMATURE GRAN PERCENT AUTO 1 % (0-1); LYMPHOCYTES ABSOLUTE AUTO 3.79 K/mm3 (0.84-5.20); LYMPHOCYTES PERCENT AUTO 21 % (21-46); MONOCYTES ABSOLUTE AUTO 1.18 K/mm3 (0.16-1.47); MONOCYTES PERCENT AUTO 7 % (4-13); Mean Corpuscular HGB 26.2 pg (26.0-34.0); Mean Corpuscular HGB Conc 32.1 g/dL (31.5-36.5); Mean Corpuscular Volume 82 fL (80-100); Mean Platelet Volume 8.4 fL (9.1-12.4); NEUTROPHILS ABSOLUTE AUTO 12.53 K/mm3 (1.96-9.15); NEUTROPHILS PERCENT AUTO 70 % (41-73); Platelet Count 286 K/mm3 (150-400); RDW Coefficient Variation 15.5 % (11.7-14.2); RDW Standard Deviation 46.4 fL (35.1-46.3); Red Blood Cell Count 4.58 M/mm3 (3.80-5.20); White Blood Cell Count 17.86 K/mm3 (4.00-11.30)
[2022-06-14 20:09] LABS: Magnesium, Blood 2.7 mg/dL (1.6-2.4)
[2022-06-14 20:14] LABS: Albumin, Blood 2.9 g/dL (3.4-5.0); Albumin/Globulin Ratio 0.7 (0.8-1.8); Bilirubin, Total 0.2 mg/dL (0.1-1.0); Bun/Creatinine Ratio 16.1 (12.0-20.0); Calcium, Blood 8.6 mg/dL (8.5-10.1); Creatinine, Blood 0.5 mg/dL (0.40-1.00); Globulin, Blood 4.3 g/dL (2.2-4.0); Potassium, Blood 3.8 mmol/L (3.5-5.5); Total Protein, Blood 7.2 g/dL (6.4-8.2)
== END 2022-06-14 21:55 | disposition home or self-care (01) ==
LOC: ER 19:02
PROVIDERS: Student in an Organized Health Care Education/Training Program
DX: O26.892 Other specified pregnancy related conditions, second trimester (principal); R55 Syncope and collapse; Z3A.19 19 weeks gestation of pregnancy; O99.512 Diseases of the respiratory system complicating pregnancy, second trimester; J45.909 Unspecified asthma, uncomplicated; O24.312 Unspecified pre-existing diabetes mellitus in pregnancy, second trimester; E11.9 Type 2 diabetes mellitus without complications; Z87.891 Personal history of nicotine dependence; Z88.1 Allergy status to other antibiotic agents; Z88.2 Allergy status to sulfonamides; Z88.8 Allergy status to other drugs, medicaments and biological substances; Z79.899 Other long term (current) drug therapy; Z79.82 Long term (current) use of aspirin
CPT/HCPCS: 36415; 72040; 80053; 83735; 84702; 85025; 86850; 86900; 86901; 93005; 93010; 99284-25

== ENCOUNTER 2022-08-19 18:19 | Emergency (ER) | payer OTHER ==
[~2022-08-19] VITALS: Ht 167.6 cm; Wt 131.5 kg
[~2022-08-19 18:19] MED LIST changes: +LABE100 PO
[2022-08-19 19:30] LABS: BASOPHILS ABSOLUTE AUTO 0.05 K/mm3 (0.00-0.23); BASOPHILS PERCENT AUTO 0 % (0-2); EOSINOPHILS ABSOLUTE AUTO 0.12 K/mm3 (0.00-0.68); EOSINOPHILS PERCENT AUTO 1 % (0-6); Hemoglobin 11.1 g/dL (11.5-16.0); IMMATURE GRAN ABSOLUTE AUTO 0.11 K/mm3 (0.00-0.10); IMMATURE GRAN PERCENT AUTO 1 % (0-1); LYMPHOCYTES ABSOLUTE AUTO 3.23 K/mm3 (0.84-5.20); LYMPHOCYTES PERCENT AUTO 19 % (21-46); MONOCYTES ABSOLUTE AUTO 1.15 K/mm3 (0.16-1.47); MONOCYTES PERCENT AUTO 7 % (4-13); Mean Corpuscular HGB 26.5 pg (26.0-34.0); Mean Corpuscular HGB Conc 32.6 g/dL (31.5-36.5); Mean Corpuscular Volume 81 fL (80-100); Mean Platelet Volume 8.1 fL (9.1-12.4); NEUTROPHILS ABSOLUTE AUTO 12.14 K/mm3 (1.96-9.15); NEUTROPHILS PERCENT AUTO 72 % (41-73); Platelet Count 300 K/mm3 (150-400); RDW Coefficient Variation 14.6 % (11.7-14.2); RDW Standard Deviation 42.9 fL (35.1-46.3); Red Blood Cell Count 4.19 M/mm3 (3.80-5.20)
[2022-08-19 19:49] LABS: Albumin, Blood 2.8 g/dL (3.4-5.0); Albumin/Globulin Ratio 0.7 (0.8-1.8); Bilirubin, Total 0.2 mg/dL (0.1-1.0); Bun/Creatinine Ratio 11.9 (12.0-20.0); Calcium, Blood 8.7 mg/dL (8.5-10.1); Creatinine, Blood 0.51 mg/dL (0.40-1.00); Globulin, Blood 4.3 g/dL (2.2-4.0); Potassium, Blood 3.8 mmol/L (3.5-5.5); Total Protein, Blood 7.1 g/dL (6.4-8.2)
== END 2022-08-20 01:02 | disposition left against medical advice (07) ==
LOC: ER 18:19
PROVIDERS: Emergency Medicine
DX: O24.313 Unspecified pre-existing diabetes mellitus in pregnancy, third trimester (principal); E11.649 Type 2 diabetes mellitus with hypoglycemia without coma; Z3A.28 28 weeks gestation of pregnancy; Z53.21 Procedure and treatment not carried out due to patient leaving prior to being seen by health care provider
CPT/HCPCS: 36415; 80053; 82947; 85025

== ENCOUNTER → 2022-08-29 | Outpatient (CLI) | payer OTHER | END | disposition home or self-care (01) | LOC: LAB SHORT 16:14 | PROVIDERS: Advanced Practice Midwife | DX: O60.03 Preterm labor without delivery, third trimester (principal) | CPT/HCPCS: 82731 ==

== ENCOUNTER → 2022-09-29 | Outpatient (CLI) | payer OTHER ==
[2022-09-29 18:01] LABS: BASOPHILS ABSOLUTE AUTO 0.07 K/mm3 (0.00-0.23); BASOPHILS PERCENT AUTO 1 % (0-2); EOSINOPHILS ABSOLUTE AUTO 0.08 K/mm3 (0.00-0.68); EOSINOPHILS PERCENT AUTO 1 % (0-6); Hematocrit 33.2 % (33.0-51.0); Hemoglobin 10.5 g/dL (11.5-16.0); IMMATURE GRAN PERCENT AUTO 1 % (0-1); LYMPHOCYTES ABSOLUTE AUTO 1.83 K/mm3 (0.84-5.20); LYMPHOCYTES PERCENT AUTO 18 % (21-46); MONOCYTES ABSOLUTE AUTO 1.45 K/mm3 (0.16-1.47); MONOCYTES PERCENT AUTO 14 % (4-13); Mean Corpuscular HGB 25.1 pg (26.0-34.0); Mean Corpuscular HGB Conc 31.6 g/dL (31.5-36.5); Mean Corpuscular Volume 79 fL (80-100); Mean Platelet Volume 8.2 fL (9.1-12.4); NEUTROPHILS ABSOLUTE AUTO 6.68 K/mm3 (1.96-9.15); NEUTROPHILS PERCENT AUTO 65 % (41-73); Platelet Count 246 K/mm3 (150-400); RDW Coefficient Variation 15.5 % (11.7-14.2); RDW Standard Deviation 44.4 fL (35.1-46.3); Red Blood Cell Count 4.18 M/mm3 (3.80-5.20); White Blood Cell Count 10.21 K/mm3 (4.00-11.30)
[2022-09-29 18:11] LABS: Albumin, Blood 2.6 g/dL (3.4-5.0); Albumin/Globulin Ratio 0.6 (0.8-1.8); Bilirubin, Total 0.2 mg/dL (0.1-1.0); Bun/Creatinine Ratio 8.9 (12.0-20.0); Calcium, Blood 8.2 mg/dL (8.5-10.1); Creatinine, Blood 0.56 mg/dL (0.40-1.00); Globulin, Blood 4.4 g/dL (2.2-4.0); Potassium, Blood 3.8 mmol/L (3.5-5.5)
== END | disposition home or self-care (01) ==
LOC: LAB SHORT 17:56
PROVIDERS: Emergency Medicine
DX: E16.2 Hypoglycemia, unspecified (principal)
CPT/HCPCS: 80053; 85025

== ENCOUNTER 2022-11-03 05:36 | Inpatient (IN) | payer OTHER ==
[~2022-11-03] VITALS: Ht 167.6 cm; Wt 136.8 kg
[2022-11-03 06:48] LABS: BASOPHILS ABSOLUTE AUTO 0.09 K/mm3 (0.00-0.23); BASOPHILS PERCENT AUTO 1 % (0-2); EOSINOPHILS ABSOLUTE AUTO 0.16 K/mm3 (0.00-0.68); EOSINOPHILS PERCENT AUTO 1 % (0-6); Hematocrit 32.4 % (33.0-51.0); Hemoglobin 10.3 g/dL (11.5-16.0); IMMATURE GRAN ABSOLUTE AUTO 0.16 K/mm3 (0.00-0.10); IMMATURE GRAN PERCENT AUTO 1 % (0-1); LYMPHOCYTES ABSOLUTE AUTO 3.41 K/mm3 (0.84-5.20); LYMPHOCYTES PERCENT AUTO 18 % (21-46); MONOCYTES ABSOLUTE AUTO 1.33 K/mm3 (0.16-1.47); MONOCYTES PERCENT AUTO 7 % (4-13); Mean Corpuscular HGB 24.6 pg (26.0-34.0); Mean Corpuscular HGB Conc 31.8 g/dL (31.5-36.5); Mean Corpuscular Volume 78 fL (80-100); Mean Platelet Volume 8.2 fL (9.1-12.4); NEUTROPHILS ABSOLUTE AUTO 14.27 K/mm3 (1.96-9.15); NEUTROPHILS PERCENT AUTO 74 % (41-73); Platelet Count 364 K/mm3 (150-400); RDW Coefficient Variation 16.1 % (11.7-14.2); RDW Standard Deviation 45.7 fL (35.1-46.3); Red Blood Cell Count 4.18 M/mm3 (3.80-5.20); White Blood Cell Count 19.42 K/mm3 (4.00-11.30)
[2022-11-03 08:31] LABS: PCO2 Cord - Arterial 58.1 mmHg (40-50); pH Cord - Arterial 7.29 (7.28-7.35)
[2022-11-03 08:32] LABS: PO2 Cord - Arterial < 16 mmHg (16-20)
[2022-11-03 08:33] LABS: PCO2 Cord - Venous 45.5 mmHg (40-50); PO2 Cord - Venous 26.3 mmHg (28-32); pH Umbilical Cord - Venous 7.36 (7.26-7.35)
--- NOTE | 2022-11-03 08:48 | NUR ---
11/03/22 0848 Fatou Churchill DELIVERY OF VIABLE MALE . BORN AT 0812. AGPARS 06/17. WEIGHT 3345 GMS. CORD BLOOD COLLECTED AND GIVEN TO BABY'S RN. CORD GASSES COLLECTED AND GIVEN TO RT. PLACENTA DELIVERED MANUALLY AND COMPLETE.
--- NOTE | 2022-11-03 14:45 | NUR ---
1341 REPT FROM Tania RIZZO RN
--- NOTE | 2022-11-03 14:46 | NUR ---
REPT FROM Tania RIZZO RN
--- NOTE | 2022-11-03 19:30 | NUR ---
ASSUMED CARE OF PT AT 1900, REPORT RECEIVED FROM BRYSON POLLACK. 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 VACUUM IS RESET ON KISHOR. PT REPORTS GOOD PAIN CONTROL ON CURRENT REGIMEN AND STATES INTEREST IN SOME AMBULATION WELL A SHOWER. VSS, POC REVIEWED WITH PT AND SO. BABY IN [place] AT BEDSIDE.
[2022-11-04 06:00] LABS: BASOPHILS ABSOLUTE AUTO 0.09 K/mm3 (0.00-0.23); BASOPHILS PERCENT AUTO 1 % (0-2); EOSINOPHILS ABSOLUTE AUTO 0.14 K/mm3 (0.00-0.68); EOSINOPHILS PERCENT AUTO 1 % (0-6); Hematocrit 27.6 % (33.0-51.0); Hemoglobin 8.6 g/dL (11.5-16.0); IMMATURE GRAN ABSOLUTE AUTO 0.13 K/mm3 (0.00-0.10); IMMATURE GRAN PERCENT AUTO 1 % (0-1); LYMPHOCYTES ABSOLUTE AUTO 2.95 K/mm3 (0.84-5.20); LYMPHOCYTES PERCENT AUTO 18 % (21-46); MONOCYTES ABSOLUTE AUTO 1.49 K/mm3 (0.16-1.47); MONOCYTES PERCENT AUTO 9 % (4-13); Mean Corpuscular HGB 24.3 pg (26.0-34.0); Mean Corpuscular HGB Conc 31.2 g/dL (31.5-36.5); Mean Corpuscular Volume 78 fL (80-100); Mean Platelet Volume 8.1 fL (9.1-12.4); NEUTROPHILS ABSOLUTE AUTO 11.66 K/mm3 (1.96-9.15); NEUTROPHILS PERCENT AUTO 71 % (41-73); Platelet Count 274 K/mm3 (150-400); RDW Coefficient Variation 16.2 % (11.7-14.2); RDW Standard Deviation 45.9 fL (35.1-46.3); Red Blood Cell Count 3.54 M/mm3 (3.80-5.20); White Blood Cell Count 16.46 K/mm3 (4.00-11.30)
[2022-11-05] MEDS ORDERED: Percocet 5-3251 EACH PO (10:37)
[2022-11-05] MEDS ORDERED: IBUP800 PO (10:37)
== END 2022-11-05 14:11 | disposition home or self-care (01) | DRG 784 ==
LOC: BC 05:36 → PRE IP 07:30 → BC 20:24
PROVIDERS: ADMIT Obstetrics & Gynecology
PROC: 10D00Z1 Extraction of Products of Conception, Low, Open Approach (ICD-10-PCS; principal; 2022-11-03 07:30)
PROC: 0UT70ZZ Resection of Bilateral Fallopian Tubes, Open Approach (ICD-10-PCS; 2022-11-03 07:30)
DX: O34.211 Maternal care for low transverse scar from previous cesarean delivery (principal); O10.92 Unspecified pre-existing hypertension complicating childbirth; O40.3XX0 Polyhydramnios, third trimester, not applicable or unspecified; O99.214 Obesity complicating childbirth; Z3A.38 38 weeks gestation of pregnancy; Z37.0 Single live birth; Q07.00 Arnold-Chiari syndrome without spina bifida or hydrocephalus; Z67.10 Type A blood, Rh positive
CPT/HCPCS: 36415; 82803; 85025; 86850; 86900; 86901; 88302; A9270; J1885; J2270; J2370; J2405; J2704; J2765; J3010; J7120

== ENCOUNTER 2023-01-27 16:38 | Emergency (ER) | payer OTHER ==
[~2023-01-27] VITALS: Ht 167.6 cm; Wt 131.5 kg
[2023-01-27 17:32] LABS: BASOPHILS ABSOLUTE AUTO 0.09 K/mm3 (0.00-0.23); BASOPHILS PERCENT AUTO 1 % (0-2); EOSINOPHILS ABSOLUTE AUTO 0.34 K/mm3 (0.00-0.68); EOSINOPHILS PERCENT AUTO 3 % (0-6); Hematocrit 35.2 % (33.0-51.0); Hemoglobin 11.2 g/dL (11.5-16.0); IMMATURE GRAN ABSOLUTE AUTO 0.02 K/mm3 (0.00-0.10); IMMATURE GRAN PERCENT AUTO 0 % (0-1); LYMPHOCYTES ABSOLUTE AUTO 3.39 K/mm3 (0.84-5.20); LYMPHOCYTES PERCENT AUTO 32 % (21-46); MONOCYTES PERCENT AUTO 6 % (4-13); Mean Corpuscular HGB 23.5 pg (26.0-34.0); Mean Corpuscular HGB Conc 31.8 g/dL (31.5-36.5); Mean Corpuscular Volume 74 fL (80-100); Mean Platelet Volume 8.3 fL (9.1-12.4); NEUTROPHILS ABSOLUTE AUTO 6.06 K/mm3 (1.96-9.15); NEUTROPHILS PERCENT AUTO 58 % (41-73); Platelet Count 310 K/mm3 (150-400); RDW Coefficient Variation 15.1 % (11.7-14.2); RDW Standard Deviation 40.7 fL (35.1-46.3); Red Blood Cell Count 4.77 M/mm3 (3.80-5.20)
[2023-01-27 18:11] LABS: Albumin, Blood 3.8 g/dL (3.4-5.0); Albumin/Globulin Ratio 0.9 (0.8-1.8); Bilirubin, Total 0.2 mg/dL (0.1-1.0); Bun/Creatinine Ratio 17.8 (12.0-20.0); Calcium, Blood 8.8 mg/dL (8.5-10.1); Creatinine, Blood 0.73 mg/dL (0.40-1.00); Globulin, Blood 4.2 g/dL (2.2-4.0)
[2023-01-27 23:00] VITALS: BP 104/52
== END 2023-01-27 23:14 | disposition home or self-care (01) ==
LOC: ER 16:38
PROVIDERS: Physician Assistant
DX: G43.909 Migraine, unspecified, not intractable, without status migrainosus (principal); J45.909 Unspecified asthma, uncomplicated; E03.9 Hypothyroidism, unspecified; E11.9 Type 2 diabetes mellitus without complications; Z88.8 Allergy status to other drugs, medicaments and biological substances; Z88.1 Allergy status to other antibiotic agents; Z88.2 Allergy status to sulfonamides; Z79.899 Other long term (current) drug therapy; Z79.82 Long term (current) use of aspirin; Z87.891 Personal history of nicotine dependence
CPT/HCPCS: 36415; 70450; 80053; 85025; 96374; 96375; 99284-25; J1200; J1885; J2765

== ENCOUNTER → 2023-03-21 | Outpatient (CLI) | payer OTHER ==
[2023-03-21 15:31] LABS: BASOPHILS ABSOLUTE AUTO 0.12 K/mm3 (0.00-0.23); BASOPHILS PERCENT AUTO 1 % (0-2); EOSINOPHILS ABSOLUTE AUTO 0.22 K/mm3 (0.00-0.68); EOSINOPHILS PERCENT AUTO 2 % (0-6); Hematocrit 34.9 % (33.0-51.0); IMMATURE GRAN ABSOLUTE AUTO 0.02 K/mm3 (0.00-0.10); IMMATURE GRAN PERCENT AUTO 0 % (0-1); LYMPHOCYTES ABSOLUTE AUTO 3.23 K/mm3 (0.84-5.20); LYMPHOCYTES PERCENT AUTO 31 % (21-46); MONOCYTES ABSOLUTE AUTO 0.74 K/mm3 (0.16-1.47); MONOCYTES PERCENT AUTO 7 % (4-13); Mean Corpuscular HGB 23.4 pg (26.0-34.0); Mean Corpuscular HGB Conc 31.5 g/dL (31.5-36.5); Mean Corpuscular Volume 74 fL (80-100); Mean Platelet Volume 9.5 fL (9.1-12.4); NEUTROPHILS ABSOLUTE AUTO 6.18 K/mm3 (1.96-9.15); NEUTROPHILS PERCENT AUTO 59 % (41-73); Platelet Count 273 K/mm3 (150-400); RDW Coefficient Variation 15.5 % (11.7-14.2); RDW Standard Deviation 41.6 fL (35.1-46.3); White Blood Cell Count 10.51 K/mm3 (4.00-11.30)
[2023-03-21 16:13] LABS: Albumin, Blood 3.3 g/dL (3.4-5.0); Albumin/Globulin Ratio 0.8 (0.8-1.8); Bun/Creatinine Ratio 9.8 (12.0-20.0); Calcium, Blood 8.4 mg/dL (8.5-10.1); Creatinine, Blood 0.82 mg/dL (0.40-1.00); Globulin, Blood 3.9 g/dL (2.2-4.0); Potassium, Blood 3.9 mmol/L (3.5-5.5); Thyroid Stimulating Hormone 9.173 uIU/mL (0.360-4.800); Total Protein, Blood 7.2 g/dL (6.4-8.2)
[2023-03-21 16:14] LABS: Bilirubin, Total 0.1 mg/dL (0.1-1.0)
== END | disposition home or self-care (01) ==
LOC: LAB 15:25 → LAB SHORT 15:25
PROVIDERS: Physician Assistant
DX: E03.9 Hypothyroidism, unspecified (principal); R53.83 Other fatigue
CPT/HCPCS: 80053; 84439; 84443; 84481; 84484; 85025

== ENCOUNTER 2023-04-12 13:04 | Emergency (ER) | payer OTHER ==
[~2023-04-12] VITALS: Ht 167.6 cm; Wt 131.5 kg
[2023-04-12 13:22] VITALS: BP 124/73
== END 2023-04-12 15:37 | disposition home or self-care (01) ==
LOC: ER 13:04
DX: L73.9 Follicular disorder, unspecified (principal); M54.2 Cervicalgia; E03.9 Hypothyroidism, unspecified; E11.9 Type 2 diabetes mellitus without complications; J45.909 Unspecified asthma, uncomplicated; Z88.8 Allergy status to other drugs, medicaments and biological substances; Z88.1 Allergy status to other antibiotic agents; Z88.2 Allergy status to sulfonamides; Z79.82 Long term (current) use of aspirin; Z87.891 Personal history of nicotine dependence
CPT/HCPCS: 99282

== ENCOUNTER 2023-07-25 19:28 | Emergency (ER) | payer OTHER ==
[~2023-07-25] VITALS: Ht 154.9 cm; Wt 140.6 kg
[~2023-07-25 19:28] MED LIST changes: -DOCU100 PO
[2023-07-26 00:53] LABS: Influenza A, PCR NEGATIVE (NEGATIVE); Influenza B, PCR NEGATIVE (NEGATIVE); Resp Syncytial Virus, PCR NEGATIVE (NEGATIVE); SARS-Cov-2 (COVID-19) PCR, MMC NEGATIVE (NEGATIVE)
[2023-07-26] MEDS ORDERED: DOCU100 PO (02:57)
[2023-07-26 03:07] VITALS: BP 117/64
== END 2023-07-26 03:08 | disposition home or self-care (01) ==
LOC: ER 19:28
PROVIDERS: Emergency Medicine
DX: K59.00 Constipation, unspecified (principal); J45.909 Unspecified asthma, uncomplicated; E11.9 Type 2 diabetes mellitus without complications; Z88.1 Allergy status to other antibiotic agents; Z88.2 Allergy status to sulfonamides; Z79.899 Other long term (current) drug therapy; Z79.82 Long term (current) use of aspirin; Z20.822 Contact with and (suspected) exposure to COVID-19; R79.1 Abnormal coagulation profile; M47.814 Spondylosis without myelopathy or radiculopathy, thoracic region; M41.9 Scoliosis, unspecified
CPT/HCPCS: 0241U; 71260; 74022; 74177; 80053; 83605; 83690; 85025; 85379; 96374-59; 99284-25; J1885; Q9967

== ENCOUNTER → 2023-07-25 | Outpatient (CLI) | payer OTHER ==
[~2023-07-25] MED LIST changes: +DOCU100 PO
[2023-07-25 17:08] LABS: BASOPHILS PERCENT AUTO 1 % (0-2); EOSINOPHILS ABSOLUTE AUTO 0.26 K/mm3 (0.00-0.68); EOSINOPHILS PERCENT AUTO 2 % (0-6); Hematocrit 35.1 % (33.0-51.0); Hemoglobin 11.1 g/dL (11.5-16.0); IMMATURE GRAN ABSOLUTE AUTO 0.04 K/mm3 (0.00-0.10); IMMATURE GRAN PERCENT AUTO 0 % (0-1); LYMPHOCYTES ABSOLUTE AUTO 3.39 K/mm3 (0.84-5.20); LYMPHOCYTES PERCENT AUTO 23 % (21-46); MONOCYTES ABSOLUTE AUTO 1.07 K/mm3 (0.16-1.47); MONOCYTES PERCENT AUTO 7 % (4-13); Mean Corpuscular HGB 23.9 pg (26.0-34.0); Mean Corpuscular HGB Conc 31.6 g/dL (31.5-36.5); Mean Corpuscular Volume 76 fL (80-100); NEUTROPHILS ABSOLUTE AUTO 9.92 K/mm3 (1.96-9.15); NEUTROPHILS PERCENT AUTO 67 % (41-73); Platelet Count 295 K/mm3 (150-400); RDW Coefficient Variation 15.9 % (11.7-14.2); RDW Standard Deviation 43.1 fL (35.1-46.3); Red Blood Cell Count 4.65 M/mm3 (3.80-5.20); White Blood Cell Count 14.78 K/mm3 (4.00-11.30)
[2023-07-25 17:28] LABS: Albumin, Blood 3.5 g/dL (3.4-5.0); Albumin/Globulin Ratio 0.8 (0.8-1.8); Bun/Creatinine Ratio 15.1 (12.0-20.0); Calcium, Blood 8.5 mg/dL (8.5-10.1); Creatinine, Blood 0.86 mg/dL (0.40-1.00); Globulin, Blood 4.2 g/dL (2.2-4.0); Potassium, Blood 3.9 mmol/L (3.5-5.5); Total Protein, Blood 7.7 g/dL (6.4-8.2)
[2023-07-25 17:29] LABS: Bilirubin, Total 0.1 mg/dL (0.1-1.0)
== END | disposition home or self-care (01) ==
LOC: LAB 17:05 → LAB SHORT 17:05
PROVIDERS: Physician Assistant
DX: M54.9 Dorsalgia, unspecified (principal); R10.9 Unspecified abdominal pain
CPT/HCPCS: 80053; 83690; 85025; 85379

== ENCOUNTER 2023-08-16 18:43 | Emergency (ER) | payer OTHER ==
[~2023-08-16] VITALS: Ht 167.6 cm; Wt 140.6 kg
[~2023-08-16 18:43] MED LIST changes: +DOCU100 PO
[2023-08-16 19:55] LABS: BASOPHILS PERCENT AUTO 1 % (0-2); EOSINOPHILS ABSOLUTE AUTO 0.22 K/mm3 (0.00-0.68); EOSINOPHILS PERCENT AUTO 2 % (0-6); Hematocrit 36.6 % (33.0-51.0); Hemoglobin 11.4 g/dL (11.5-16.0); IMMATURE GRAN ABSOLUTE AUTO 0.04 K/mm3 (0.00-0.10); IMMATURE GRAN PERCENT AUTO 0 % (0-1); LYMPHOCYTES ABSOLUTE AUTO 3.09 K/mm3 (0.84-5.20); LYMPHOCYTES PERCENT AUTO 23 % (21-46); MONOCYTES ABSOLUTE AUTO 1.04 K/mm3 (0.16-1.47); MONOCYTES PERCENT AUTO 8 % (4-13); Mean Corpuscular HGB 23.6 pg (26.0-34.0); Mean Corpuscular HGB Conc 31.1 g/dL (31.5-36.5); Mean Corpuscular Volume 76 fL (80-100); Mean Platelet Volume 8.4 fL (9.1-12.4); NEUTROPHILS ABSOLUTE AUTO 9.09 K/mm3 (1.96-9.15); NEUTROPHILS PERCENT AUTO 67 % (41-73); Platelet Count 295 K/mm3 (150-400); RDW Coefficient Variation 15.5 % (11.7-14.2); RDW Standard Deviation 42.2 fL (35.1-46.3); Red Blood Cell Count 4.83 M/mm3 (3.80-5.20); White Blood Cell Count 13.58 K/mm3 (4.00-11.30)
[2023-08-16 20:35] LABS: Alanine Aminotransfer (ALT/SGP 26 U/L (12-78); Albumin, Blood 3.5 g/dL (3.4-5.0); Albumin/Globulin Ratio 0.8 (0.8-1.8); Alk Phos 69 U/L (50-136); Anion Gap 5 mmol/L (6-16); Aspartate Aminotrans (AST/SGOT 14 U/L (12-37); Beta HCG, Quantitative, Serum <1 mIU/mL (0-3); Bilirubin, Total 0.1 mg/dL (0.1-1.0); Blood Urea Nitrogen 10 mg/dL (8-24); Bun/Creatinine Ratio 12.7 (12.0-20.0); CO2, Blood 25 mmol/L (21-32); Calcium, Blood 8.6 mg/dL (8.5-10.1); Chloride, Blood 109 mmol/L (98-108); Creatinine, Blood 0.79 mg/dL (0.40-1.00); Globulin, Blood 4.2 g/dL (2.2-4.0); Glomerular Filtration Rate 104 (60-); Glucose, Blood 94 mg/dL (70-99); Potassium, Blood 4.1 mmol/L (3.5-5.5); Sodium, Blood 139 mmol/L (136-145); Total Protein, Blood 7.7 g/dL (6.4-8.2)
[2023-08-16 20:56] VITALS: BP 135/81
== END 2023-08-16 21:26 | disposition home or self-care (01) ==
LOC: ER 18:43
PROVIDERS: Emergency Medicine
DX: R55 Syncope and collapse (principal); R11.2 Nausea with vomiting, unspecified; R07.89 Other chest pain; Z86.69 Personal history of other diseases of the nervous system and sense organs; J45.909 Unspecified asthma, uncomplicated; E03.9 Hypothyroidism, unspecified; E11.9 Type 2 diabetes mellitus without complications; F32.A Depression, unspecified; Z88.8 Allergy status to other drugs, medicaments and biological substances; Z88.1 Allergy status to other antibiotic agents; Z88.2 Allergy status to sulfonamides; Z79.899 Other long term (current) drug therapy; Z79.82 Long term (current) use of aspirin
CPT/HCPCS: 70450; 80053; 84484; 84702; 85025; 93005; 93010; 96361; 96374; 99284-25; A9270; J2405; J7030; Q9967

== ENCOUNTER 2023-10-02 18:51 | Emergency (ER) | payer OTHER ==
[~2023-10-02] VITALS: Ht 167.6 cm; Wt 138.3 kg
[2023-10-02 19:28] LABS: BASOPHILS ABSOLUTE AUTO 0.09 K/mm3 (0.00-0.23); BASOPHILS PERCENT AUTO 1 % (0-2); EOSINOPHILS ABSOLUTE AUTO 0.29 K/mm3 (0.00-0.68); EOSINOPHILS PERCENT AUTO 3 % (0-6); Hematocrit 34.1 % (33.0-51.0); Hemoglobin 10.6 g/dL (11.5-16.0); IMMATURE GRAN ABSOLUTE AUTO 0.02 K/mm3 (0.00-0.10); IMMATURE GRAN PERCENT AUTO 0 % (0-1); LYMPHOCYTES ABSOLUTE AUTO 2.87 K/mm3 (0.84-5.20); LYMPHOCYTES PERCENT AUTO 27 % (21-46); MONOCYTES ABSOLUTE AUTO 0.81 K/mm3 (0.16-1.47); MONOCYTES PERCENT AUTO 8 % (4-13); Mean Corpuscular HGB 23.8 pg (26.0-34.0); Mean Corpuscular HGB Conc 31.1 g/dL (31.5-36.5); Mean Corpuscular Volume 77 fL (80-100); Mean Platelet Volume 8.5 fL (9.1-12.4); NEUTROPHILS ABSOLUTE AUTO 6.61 K/mm3 (1.96-9.15); NEUTROPHILS PERCENT AUTO 62 % (41-73); Platelet Count 270 K/mm3 (150-400); RDW Coefficient Variation 15.5 % (11.7-14.2); RDW Standard Deviation 42.7 fL (35.1-46.3); Red Blood Cell Count 4.46 M/mm3 (3.80-5.20); White Blood Cell Count 10.69 K/mm3 (4.00-11.30)
[2023-10-02 19:34] LABS: Source, Urine Voided
[2023-10-02 19:41] LABS: Appearance, Urine Hazy (Clear); Bilirubin, Urine Neg (Neg); Blood, Urine Neg (Neg); Color, Urine Yellow (P-Yellow); Glucose Qualitative, Urine Neg (Neg); Ketones, Urine Neg (Neg); Leukocyte Esterase, Urine Neg (Neg); Nitrite, Urine Neg (Neg); Protein, Urine Neg (Neg); Urobilinogen, Urine NORM (Normal); pH, Urine 6.5 (5.0-8.0)
[2023-10-02 19:48] LABS: Alanine Aminotransfer (ALT/SGP 25 U/L (12-78); Albumin, Blood 3.3 g/dL (3.4-5.0); Albumin/Globulin Ratio 0.8 (0.8-1.8); Alk Phos 67 U/L (50-136); Anion Gap 3 mmol/L (6-16); Aspartate Aminotrans (AST/SGOT 16 U/L (12-37); Bilirubin, Total <0.1 mg/dL (0.1-1.0); Blood Urea Nitrogen 11 mg/dL (8-24); CO2, Blood 27 mmol/L (21-32); Calcium, Blood 7.9 mg/dL (8.5-10.1); Chloride, Blood 112 mmol/L (98-108); Creatinine, Blood 0.79 mg/dL (0.40-1.00); Glomerular Filtration Rate 104 (60-); Glucose, Blood 88 mg/dL (70-99); Potassium, Blood 3.9 mmol/L (3.5-5.5); Sodium, Blood 142 mmol/L (136-145); Total Protein, Blood 7.3 g/dL (6.4-8.2)
[2023-10-02 20:30] VITALS: BP 118/81
[2023-10-02 20:42] LABS: Amorphous Light (0-Heavy); Bacteria Many /hpf; Mucus Light (0-Heavy); Squamous Epithelial Cells Mod /hpf (Few)
[2023-10-02 20:43] LABS: Red Blood Cells, Urine 0-2 /hpf (0-2); White Blood Cells, Urine 0-2 /hpf (0-5)
[2023-10-02 20:45] LABS: Beta HCG, Quantitative, Serum <1 mIU/mL (0-3)
== END 2023-10-02 21:40 | disposition home or self-care (01) ==
LOC: ER 18:51
PROVIDERS: Student in an Organized Health Care Education/Training Program
DX: R55 Syncope and collapse (principal); S00.83XA Contusion of other part of head, initial encounter; W19.XXXA Unspecified fall, initial encounter; Z88.8 Allergy status to other drugs, medicaments and biological substances; Z88.2 Allergy status to sulfonamides; Z88.1 Allergy status to other antibiotic agents; Z79.899 Other long term (current) drug therapy; Z79.82 Long term (current) use of aspirin; J45.909 Unspecified asthma, uncomplicated; E03.9 Hypothyroidism, unspecified; E11.9 Type 2 diabetes mellitus without complications
CPT/HCPCS: 80053; 81001; 82947; 84702; 85025; 87086; 93005; 93010; 96360; 99284-25; J7030

== ENCOUNTER 2023-10-05 19:41 | Emergency (ER) | payer OTHER ==
[~2023-10-05] VITALS: Ht 167.6 cm; Wt 138.3 kg
[2023-10-05 22:05] LABS: BASOPHILS ABSOLUTE AUTO 0.13 K/mm3 (0.00-0.23); BASOPHILS PERCENT AUTO 1 % (0-2); EOSINOPHILS ABSOLUTE AUTO 0.31 K/mm3 (0.00-0.68); EOSINOPHILS PERCENT AUTO 2 % (0-6); Hematocrit 36.3 % (33.0-51.0); Hemoglobin 11.2 g/dL (11.5-16.0); IMMATURE GRAN ABSOLUTE AUTO 0.04 K/mm3 (0.00-0.10); IMMATURE GRAN PERCENT AUTO 0 % (0-1); LYMPHOCYTES PERCENT AUTO 26 % (21-46); MONOCYTES ABSOLUTE AUTO 1.06 K/mm3 (0.16-1.47); MONOCYTES PERCENT AUTO 7 % (4-13); Mean Corpuscular HGB 23.4 pg (26.0-34.0); Mean Corpuscular HGB Conc 30.9 g/dL (31.5-36.5); Mean Corpuscular Volume 76 fL (80-100); Mean Platelet Volume 8.4 fL (9.1-12.4); NEUTROPHILS ABSOLUTE AUTO 9.55 K/mm3 (1.96-9.15); NEUTROPHILS PERCENT AUTO 64 % (41-73); Platelet Count 283 K/mm3 (150-400); RDW Coefficient Variation 15.4 % (11.7-14.2); RDW Standard Deviation 42.3 fL (35.1-46.3); Red Blood Cell Count 4.78 M/mm3 (3.80-5.20); White Blood Cell Count 14.99 K/mm3 (4.00-11.30)
[2023-10-05 22:33] LABS: Albumin, Blood 3.3 g/dL (3.4-5.0); Albumin/Globulin Ratio 0.8 (0.8-1.8); Bilirubin, Total 0.2 mg/dL (0.1-1.0); Bun/Creatinine Ratio 20.3 (12.0-20.0); Calcium, Blood 8.7 mg/dL (8.5-10.1); Creatinine, Blood 0.74 mg/dL (0.40-1.00); Globulin, Blood 4.2 g/dL (2.2-4.0); Potassium, Blood 4.1 mmol/L (3.5-5.5); Total Protein, Blood 7.5 g/dL (6.4-8.2)
[2023-10-06 00:05] LABS: Thyroid Stimulating Hormone 5.97 uIU/mL (0.360-4.800)
[2023-10-06 01:30] VITALS: BP 120/73
== END 2023-10-06 01:44 | disposition home or self-care (01) ==
LOC: ER 19:41
PROVIDERS: Student in an Organized Health Care Education/Training Program
DX: R55 Syncope and collapse (principal); E66.9 Obesity, unspecified; Z88.2 Allergy status to sulfonamides; Z88.1 Allergy status to other antibiotic agents; Z88.8 Allergy status to other drugs, medicaments and biological substances; Z79.899 Other long term (current) drug therapy; Z79.82 Long term (current) use of aspirin; Z87.891 Personal history of nicotine dependence
CPT/HCPCS: 70450; 71046; 80053; 84443; 84484; 85025; 85379; 93005; 93010; 96365; 99284-25; J1120

== ENCOUNTER → 2024-02-12 | Outpatient (CLI) | payer OTHER ==
[2024-02-12 14:30] LABS: BASOPHILS ABSOLUTE AUTO 0.08 K/mm3 (0.00-0.23); BASOPHILS PERCENT AUTO 1 % (0-2); EOSINOPHILS ABSOLUTE AUTO 0.15 K/mm3 (0.00-0.68); EOSINOPHILS PERCENT AUTO 2 % (0-6); Hematocrit 36.3 % (33.0-51.0); Hemoglobin 11.3 g/dL (11.5-16.0); IMMATURE GRAN ABSOLUTE AUTO 0.03 K/mm3 (0.00-0.10); IMMATURE GRAN PERCENT AUTO 0 % (0-1); LYMPHOCYTES ABSOLUTE AUTO 2.44 K/mm3 (0.84-5.20); LYMPHOCYTES PERCENT AUTO 27 % (21-46); MONOCYTES ABSOLUTE AUTO 0.62 K/mm3 (0.16-1.47); MONOCYTES PERCENT AUTO 7 % (4-13); Mean Corpuscular HGB 24.1 pg (26.0-34.0); Mean Corpuscular HGB Conc 31.1 g/dL (31.5-36.5); Mean Corpuscular Volume 78 fL (80-100); Mean Platelet Volume 8.3 fL (9.1-12.4); NEUTROPHILS ABSOLUTE AUTO 5.69 K/mm3 (1.96-9.15); NEUTROPHILS PERCENT AUTO 63 % (41-73); Platelet Count 295 K/mm3 (150-400); RDW Coefficient Variation 15.9 % (11.7-14.2); Red Blood Cell Count 4.68 M/mm3 (3.80-5.20); White Blood Cell Count 9.01 K/mm3 (4.00-11.30)
[2024-02-12 14:41] LABS: Albumin, Blood 3.7 g/dL (3.4-5.0); Albumin/Globulin Ratio 0.9 (0.8-1.8); Bilirubin, Total 0.2 mg/dL (0.1-1.0); Bun/Creatinine Ratio 15.2 (12.0-20.0); Calcium, Blood 8.7 mg/dL (8.5-10.1); Creatinine, Blood 0.79 mg/dL (0.40-1.00); Globulin, Blood 4.1 g/dL (2.2-4.0); Potassium, Blood 4.2 mmol/L (3.5-5.5); Total Protein, Blood 7.8 g/dL (6.4-8.2)
== END | disposition home or self-care (01) ==
LOC: LAB 14:24 → LAB SHORT 14:24
PROVIDERS: Physician Assistant
DX: R07.9 Chest pain, unspecified (principal)
CPT/HCPCS: 80053; 84484; 85025

== ENCOUNTER → 2024-04-19 | Outpatient (CLI) | payer OTHER ==
[2024-04-19 17:40] LABS: BASOPHILS ABSOLUTE AUTO 0.06 K/mm3 (0.00-0.23); BASOPHILS PERCENT AUTO 1 % (0-2); EOSINOPHILS ABSOLUTE AUTO 0.19 K/mm3 (0.00-0.68); EOSINOPHILS PERCENT AUTO 2 % (0-6); Hematocrit 35.1 % (33.0-51.0); Hemoglobin 10.9 g/dL (11.5-16.0); IMMATURE GRAN ABSOLUTE AUTO 0.03 K/mm3 (0.00-0.10); IMMATURE GRAN PERCENT AUTO 0 % (0-1); LYMPHOCYTES ABSOLUTE AUTO 2.66 K/mm3 (0.84-5.20); LYMPHOCYTES PERCENT AUTO 23 % (21-46); MONOCYTES PERCENT AUTO 6 % (4-13); Mean Corpuscular HGB 23.8 pg (26.0-34.0); Mean Corpuscular HGB Conc 31.1 g/dL (31.5-36.5); Mean Corpuscular Volume 77 fL (80-100); Mean Platelet Volume 8.1 fL (9.1-12.4); NEUTROPHILS ABSOLUTE AUTO 7.88 K/mm3 (1.96-9.15); NEUTROPHILS PERCENT AUTO 68 % (41-73); Platelet Count 322 K/mm3 (150-400); RDW Coefficient Variation 16.1 % (11.7-14.2); RDW Standard Deviation 44.2 fL (35.1-46.3); Red Blood Cell Count 4.58 M/mm3 (3.80-5.20); White Blood Cell Count 11.52 K/mm3 (4.00-11.30)
[2024-04-19 17:55] LABS: Albumin, Blood 3.3 g/dL (3.4-5.0); Albumin/Globulin Ratio 0.8 (0.8-1.8); Bilirubin, Total 0.1 mg/dL (0.1-1.0); Bun/Creatinine Ratio 13.9 (12.0-20.0); Calcium, Blood 8.5 mg/dL (8.5-10.1); Creatinine, Blood 0.72 mg/dL (0.40-1.00); Globulin, Blood 4.4 g/dL (2.2-4.0); Total Protein, Blood 7.7 g/dL (6.4-8.2)
== END | disposition home or self-care (01) ==
LOC: LAB SHORT 17:34 → LAB 17:34
PROVIDERS: Family Medicine
DX: R55 Syncope and collapse (principal)
CPT/HCPCS: 80053; 85025

== ENCOUNTER → 2024-05-30 | Outpatient (CLI) | payer OTHER ==
[2024-05-30 15:08] LABS: BASOPHILS ABSOLUTE AUTO 0.09 K/mm3 (0.00-0.23); BASOPHILS PERCENT AUTO 1 % (0-2); EOSINOPHILS ABSOLUTE AUTO 0.16 K/mm3 (0.00-0.68); EOSINOPHILS PERCENT AUTO 1 % (0-6); Hematocrit 35.5 % (33.0-51.0); Hemoglobin 10.9 g/dL (11.5-16.0); IMMATURE GRAN ABSOLUTE AUTO 0.03 K/mm3 (0.00-0.10); IMMATURE GRAN PERCENT AUTO 0 % (0-1); LYMPHOCYTES ABSOLUTE AUTO 3.01 K/mm3 (0.84-5.20); LYMPHOCYTES PERCENT AUTO 25 % (21-46); MONOCYTES ABSOLUTE AUTO 0.78 K/mm3 (0.16-1.47); MONOCYTES PERCENT AUTO 7 % (4-13); Mean Corpuscular HGB Conc 30.7 g/dL (31.5-36.5); Mean Corpuscular Volume 78 fL (80-100); Mean Platelet Volume 9.1 fL (9.1-12.4); NEUTROPHILS PERCENT AUTO 66 % (41-73); Platelet Count 254 K/mm3 (150-400); RDW Coefficient Variation 15.4 % (11.7-14.2); RDW Standard Deviation 43.9 fL (35.1-46.3); Red Blood Cell Count 4.54 M/mm3 (3.80-5.20); White Blood Cell Count 11.97 K/mm3 (4.00-11.30)
[2024-05-30 15:27] LABS: Albumin, Blood 3.5 g/dL (3.4-5.0); Albumin/Globulin Ratio 0.8 (0.8-1.8); Bilirubin, Total 0.2 mg/dL (0.1-1.0); Bun/Creatinine Ratio 11.5 (12.0-20.0); Calcium, Blood 8.4 mg/dL (8.5-10.1); Creatinine, Blood 0.87 mg/dL (0.40-1.00); Globulin, Blood 4.2 g/dL (2.2-4.0); Potassium, Blood 3.8 mmol/L (3.5-5.5); Thyroid Stimulating Hormone 6.268 uIU/mL (0.360-4.800); Total Protein, Blood 7.7 g/dL (6.4-8.2)
== END | disposition home or self-care (01) ==
LOC: LAB SHORT 15:00 → LAB 15:00
PROVIDERS: Physician Assistant Surgical
DX: R07.81 Pleurodynia (principal)
CPT/HCPCS: 80053; 84443; 84484; 85025; 85379

== ENCOUNTER 2024-09-17 18:09 | Emergency (ER) | payer OTHER ==
[~2024-09-17] VITALS: Ht 167.6 cm; Wt 137.4 kg
[2024-09-17 19:17] LABS: BASOPHILS ABSOLUTE AUTO 0.08 K/mm3 (0.00-0.23); BASOPHILS PERCENT AUTO 1 % (0-2); EOSINOPHILS ABSOLUTE AUTO 0.16 K/mm3 (0.00-0.68); EOSINOPHILS PERCENT AUTO 1 % (0-6); Hematocrit 35.3 % (33.0-51.0); Hemoglobin 10.9 g/dL (11.5-16.0); IMMATURE GRAN ABSOLUTE AUTO 0.05 K/mm3 (0.00-0.10); IMMATURE GRAN PERCENT AUTO 0 % (0-1); LYMPHOCYTES ABSOLUTE AUTO 3.14 K/mm3 (0.84-5.20); LYMPHOCYTES PERCENT AUTO 24 % (21-46); MONOCYTES ABSOLUTE AUTO 0.85 K/mm3 (0.16-1.47); MONOCYTES PERCENT AUTO 7 % (4-13); Mean Corpuscular HGB Conc 30.9 g/dL (31.5-36.5); Mean Corpuscular Volume 78 fL (80-100); Mean Platelet Volume 8.7 fL (9.1-12.4); NEUTROPHILS ABSOLUTE AUTO 8.86 K/mm3 (1.96-9.15); NEUTROPHILS PERCENT AUTO 67 % (41-73); Platelet Count 265 K/mm3 (150-400); RDW Coefficient Variation 15.6 % (11.7-14.2); RDW Standard Deviation 43.7 fL (35.1-46.3); Red Blood Cell Count 4.54 M/mm3 (3.80-5.20); White Blood Cell Count 13.14 K/mm3 (4.00-11.30)
[2024-09-17 19:42] LABS: Albumin, Blood 3.4 g/dL (3.4-5.0); Albumin/Globulin Ratio 0.9 (0.8-1.8); Bilirubin, Total 0.2 mg/dL (0.1-1.0); Bun/Creatinine Ratio 13.7 (12.0-20.0); Calcium, Blood 8.6 mg/dL (8.5-10.1); Creatinine, Blood 0.8 mg/dL (0.40-1.00); Globulin, Blood 3.8 g/dL (2.2-4.0); Total Protein, Blood 7.2 g/dL (6.4-8.2)
[2024-09-17] MEDS ORDERED: FAMO20 PO (22:36)
[2024-09-17] MEDS ORDERED: ALMACONE SUSPE355 ML PO (22:36)
[2024-09-17 22:40] VITALS: BP 125/83
== END 2024-09-17 22:44 | disposition home or self-care (01) ==
LOC: ER 18:09
PROVIDERS: Student in an Organized Health Care Education/Training Program
DX: K21.9 Gastro-esophageal reflux disease without esophagitis (principal); J45.909 Unspecified asthma, uncomplicated; E03.9 Hypothyroidism, unspecified; E11.9 Type 2 diabetes mellitus without complications; Z68.42 Body mass index [BMI] 45.0-49.9, adult; Z87.891 Personal history of nicotine dependence; Z79.82 Long term (current) use of aspirin; Z79.899 Other long term (current) drug therapy; Z88.2 Allergy status to sulfonamides; Z88.1 Allergy status to other antibiotic agents; Z88.8 Allergy status to other drugs, medicaments and biological substances
CPT/HCPCS: 71046; 80053; 83690; 84484; 85025; 93005; 93010; 99285-25

== ENCOUNTER 2025-02-06 17:31 | Emergency (ER) | payer OTHER ==
[~2025-02-06] VITALS: Ht 170.2 cm; Wt 135.6 kg
[~2025-02-06 17:31] MED LIST changes: +ALMACONE SUSPE355 ML PO; +FAMO20 PO
[2025-02-06] MEDS ORDERED: LOSARTAN POTASS25 M2 PO (17:55)
[2025-02-06] MEDS ORDERED: LEVOTHYROXINE112 M18 PO (17:55)
[2025-02-06] MEDS ORDERED: AMLODIPINE BESYL5 MG PO (17:55)
[2025-02-06] MEDS ORDERED: ZANAFLEX413 PO (17:56)
[2025-02-06] MEDS ORDERED: HYDCHL25 PO (17:56)
[2025-02-06] MEDS ORDERED: LAMOTRIGINE25 M4 PO (17:56)
[2025-02-06] MEDS ORDERED: NS 1,000 ML IV SCH (18:30)
[2025-02-06] MEDS ORDERED: Ketorolac Tromethamine 15mg Vial IV ONE (18:30)
[2025-02-06] MEDS ORDERED: DiphenhydrAMINE HCl 50 MG/ML 1ML Vial IV ONE (18:30)
[2025-02-06] MEDS ORDERED: Prochlorperazine Edisylate 10 mg Vial IV ONE (18:30)
[2025-02-06 18:44] VITALS: BP 153/97
== END 2025-02-06 19:45 | disposition home or self-care (01) ==
LOC: ER 17:31
DX: R51.9 Headache, unspecified (principal); Z88.2 Allergy status to sulfonamides; Z88.8 Allergy status to other drugs, medicaments and biological substances; Z79.891 Long term (current) use of opiate analgesic; Z79.899 Other long term (current) drug therapy; J45.909 Unspecified asthma, uncomplicated; E11.9 Type 2 diabetes mellitus without complications; Z87.891 Personal history of nicotine dependence
CPT/HCPCS: 96374; 96375; 99284-25; J0780; J1200; J1885; J7030

== ENCOUNTER 2025-05-11 19:11 | Emergency (ER) | payer MEDICARE, OTHER ==
[~2025-05-11] VITALS: Ht 167.6 cm; Wt 127.9 kg
[~2025-05-11 19:11] MED LIST changes: +AMLODIPINE BESYL5 MG PO; +HYDCHL25 PO; +LAMOTRIGINE25 M4 PO; +LEVOTHYROXINE112 M18 PO; +LOSARTAN POTASS25 M2 PO; +ZANAFLEX413 PO
[2025-05-11 19:34] VITALS: BP 145/90
[2025-05-11 20:04] LABS: BASOPHILS ABSOLUTE AUTO 0.11 K/mm3 (0.00-0.23); BASOPHILS PERCENT AUTO 1 % (0-2); EOSINOPHILS ABSOLUTE AUTO 0.54 K/mm3 (0.00-0.68); EOSINOPHILS PERCENT AUTO 4 % (0-6); Hematocrit 38.1 % (33.0-51.0); Hemoglobin 12.3 g/dL (11.5-16.0); IMMATURE GRAN ABSOLUTE AUTO 0.03 K/mm3 (0.00-0.10); IMMATURE GRAN PERCENT AUTO 0 % (0-1); LYMPHOCYTES ABSOLUTE AUTO 2.87 K/mm3 (0.84-5.20); LYMPHOCYTES PERCENT AUTO 21 % (21-46); MONOCYTES ABSOLUTE AUTO 0.72 K/mm3 (0.16-1.47); MONOCYTES PERCENT AUTO 5 % (4-13); Mean Corpuscular HGB Conc 32.3 g/dL (31.5-36.5); Mean Corpuscular Volume 80 fL (80-100); NEUTROPHILS ABSOLUTE AUTO 9.33 K/mm3 (1.96-9.15); NEUTROPHILS PERCENT AUTO 69 % (41-73); NRBC ABSOLUTE 0.00 K/mm3 (0.00-0.02); NRBC Auto 0.0 /100 WBC (0.0-0.2); Platelet Count 239 K/mm3 (150-400); RDW Coefficient Variation 13.5 % (11.7-14.2); RDW Standard Deviation 39.3 fL (35.1-46.3)
[2025-05-11 20:22] LABS: Alanine Aminotransfer (ALT/SGP 95.0 U/L (12-78); Albumin, Blood 3.8 g/dL (3.4-5.0); Albumin/Globulin Ratio 1.0 (0.8-1.8); Anion Gap 11.0 mmol/L (3-11); Aspartate Aminotrans (AST/SGOT 32.0 U/L (12-37); Bilirubin, Total 0.5 mg/dL (0.1-1.0); Blood Urea Nitrogen 14.0 mg/dL (8-24); CO2, Blood 23.0 mmol/L (21-32); Calcium, Blood 8.8 mg/dL (8.5-10.1); Chloride, Blood 105.0 mmol/L (98-108); Creatinine, Blood 0.65 mg/dL (0.40-1.00); Globulin, Blood 4.0 g/dL (2.2-4.0); Glucose, Blood 87.0 mg/dL (70-99); Potassium, Blood 3.7 mmol/L (3.5-5.5); Sodium, Blood 135.0 mmol/L (136-145); Total Protein, Blood 7.8 g/dL (6.4-8.2)
[2025-05-11 21:13] LABS: Prothrombin Time Results 11.8 Sec (9.7-11.5)
== END 2025-05-12 01:27 | disposition home or self-care (01) ==
LOC: ER 19:11
PROVIDERS: Student in an Organized Health Care Education/Training Program
DX: R23.3 Spontaneous ecchymoses (principal); E11.9 Type 2 diabetes mellitus without complications; J45.909 Unspecified asthma, uncomplicated; Z88.2 Allergy status to sulfonamides; Z88.8 Allergy status to other drugs, medicaments and biological substances; Z79.899 Other long term (current) drug therapy; Z87.891 Personal history of nicotine dependence; Z59.89 Other problems related to housing and economic circumstances
CPT/HCPCS: 71046; 80053; 82947; 84484; 84703; 85025; 85610; 85730; 93005; 93010; 99284-25

== ENCOUNTER 2025-06-10 15:58 | Emergency (ER) | payer MEDICARE, OTHER ==
[~2025-06-10] VITALS: Ht 167.6 cm; Wt 118.8 kg
[2025-06-10 16:33] LABS: BASOPHILS ABSOLUTE AUTO 0.07 K/mm3 (0.00-0.23); BASOPHILS PERCENT AUTO 1 % (0-2); EOSINOPHILS ABSOLUTE AUTO 0.21 K/mm3 (0.00-0.68); EOSINOPHILS PERCENT AUTO 2 % (0-6); Hematocrit 38.3 % (33.0-51.0); Hemoglobin 12.6 g/dL (11.5-16.0); IMMATURE GRAN ABSOLUTE AUTO 0.03 K/mm3 (0.00-0.10); IMMATURE GRAN PERCENT AUTO 0 % (0-1); LYMPHOCYTES ABSOLUTE AUTO 2.76 K/mm3 (0.84-5.20); LYMPHOCYTES PERCENT AUTO 29 % (21-46); MONOCYTES ABSOLUTE AUTO 0.54 K/mm3 (0.16-1.47); MONOCYTES PERCENT AUTO 6 % (4-13); Mean Corpuscular HGB Conc 32.9 g/dL (31.5-36.5); Mean Corpuscular Volume 81 fL (80-100); NEUTROPHILS ABSOLUTE AUTO 6.02 K/mm3 (1.96-9.15); NEUTROPHILS PERCENT AUTO 63 % (41-73); NRBC ABSOLUTE 0.00 K/mm3 (0.00-0.02); NRBC Auto 0.0 /100 WBC (0.0-0.2); Platelet Count 163 K/mm3 (150-400); RDW Coefficient Variation 15.2 % (11.7-14.2); RDW Standard Deviation 44.3 fL (35.1-46.3)
[2025-06-10 16:58] LABS: Alanine Aminotransfer (ALT/SGP 44.0 U/L (12-78); Albumin, Blood 3.9 g/dL (3.4-5.0); Albumin/Globulin Ratio 1.1 (0.8-1.8); Anion Gap 11.0 mmol/L (3-11); Aspartate Aminotrans (AST/SGOT 26.0 U/L (12-37); Bilirubin, Total 0.4 mg/dL (0.1-1.0); Blood Urea Nitrogen 10.0 mg/dL (8-24); CO2, Blood 22.0 mmol/L (21-32); Calcium, Blood 8.8 mg/dL (8.5-10.1); Chloride, Blood 106.0 mmol/L (98-108); Creatinine, Blood 0.68 mg/dL (0.40-1.00); Globulin, Blood 3.4 g/dL (2.2-4.0); Glucose, Blood 77.0 mg/dL (70-99); Potassium, Blood 3.7 mmol/L (3.5-5.5); Sodium, Blood 135.0 mmol/L (136-145); Total Protein, Blood 7.3 g/dL (6.4-8.2)
[2025-06-10] MEDS ORDERED: Lidocaine 2% Viscous Soln 15 ML UDC PO ONE (21:45)
[2025-06-11 01:10] VITALS: BP 120/60
== END 2025-06-11 02:45 | disposition home or self-care (01) ==
LOC: ER 15:58
PROVIDERS: Emergency Medicine
DX: R07.2 Precordial pain (principal); E11.9 Type 2 diabetes mellitus without complications; J45.909 Unspecified asthma, uncomplicated; Z88.2 Allergy status to sulfonamides; Z88.8 Allergy status to other drugs, medicaments and biological substances; Z79.2 Long term (current) use of antibiotics; Z79.899 Other long term (current) drug therapy; Z87.891 Personal history of nicotine dependence; Z59.89 Other problems related to housing and economic circumstances
CPT/HCPCS: 71046; 71260; 80053; 84484; 85025; 85379; 93005; 93010; 99285-25; A9270; Q9967

== ENCOUNTER 2025-08-10 12:05 | Emergency (ER) | payer MEDICARE, OTHER ==
[~2025-08-10] VITALS: Ht 167.6 cm; Wt 103.0 kg
[2025-08-10 12:26] LABS: BASOPHILS ABSOLUTE AUTO 0.09 K/mm3 (0.00-0.23); BASOPHILS PERCENT AUTO 1 % (0-2); EOSINOPHILS ABSOLUTE AUTO 0.10 K/mm3 (0.00-0.68); EOSINOPHILS PERCENT AUTO 1 % (0-6); Hematocrit 39.6 % (33.0-51.0); Hemoglobin 13.1 g/dL (11.5-16.0); IMMATURE GRAN ABSOLUTE AUTO 0.02 K/mm3 (0.00-0.10); IMMATURE GRAN PERCENT AUTO 0 % (0-1); LYMPHOCYTES ABSOLUTE AUTO 2.73 K/mm3 (0.84-5.20); LYMPHOCYTES PERCENT AUTO 35 % (21-46); MONOCYTES ABSOLUTE AUTO 0.52 K/mm3 (0.16-1.47); MONOCYTES PERCENT AUTO 7 % (4-13); Mean Corpuscular HGB Conc 33.1 g/dL (31.5-36.5); Mean Corpuscular Volume 84 fL (80-100); NEUTROPHILS ABSOLUTE AUTO 4.44 K/mm3 (1.96-9.15); NEUTROPHILS PERCENT AUTO 56 % (41-73); NRBC ABSOLUTE 0.00 K/mm3 (0.00-0.02); NRBC Auto 0.0 /100 WBC (0.0-0.2); Platelet Count 208 K/mm3 (150-400); RDW Coefficient Variation 14.2 % (11.7-14.2); RDW Standard Deviation 43.8 fL (35.1-46.3)
[2025-08-10 12:54] LABS: Alanine Aminotransfer (ALT/SGP 45.0 U/L (12-78); Albumin, Blood 3.7 g/dL (3.4-5.0); Albumin/Globulin Ratio 1.1 (0.8-1.8); Anion Gap 9.0 mmol/L (3-11); Aspartate Aminotrans (AST/SGOT 16.0 U/L (12-37); Bilirubin, Total 0.5 mg/dL (0.1-1.0); Blood Urea Nitrogen 10.0 mg/dL (8-24); CO2, Blood 23.0 mmol/L (21-32); Calcium, Blood 8.5 mg/dL (8.5-10.1); Chloride, Blood 109.0 mmol/L (98-108); Creatinine, Blood 0.68 mg/dL (0.40-1.00); Globulin, Blood 3.5 g/dL (2.2-4.0); Glucose, Blood 86.0 mg/dL (70-99); Potassium, Blood 3.6 mmol/L (3.5-5.5); Sodium, Blood 137.0 mmol/L (136-145); Total Protein, Blood 7.2 g/dL (6.4-8.2)
[2025-08-10 13:29] LABS: Thyroid Stimulating Hormone 6.08 uIU/mL (0.360-4.800)
[2025-08-10 14:45] VITALS: BP 119/83
== END 2025-08-10 14:55 | disposition home or self-care (01) ==
LOC: ER 12:05
PROVIDERS: Emergency Medicine; Physician Assistant
DX: R00.2 Palpitations (principal); R07.89 Other chest pain; J45.909 Unspecified asthma, uncomplicated; E11.9 Type 2 diabetes mellitus without complications; Z87.891 Personal history of nicotine dependence; Z88.2 Allergy status to sulfonamides; Z79.899 Other long term (current) drug therapy; Z88.8 Allergy status to other drugs, medicaments and biological substances
CPT/HCPCS: 71046; 80053; 83690; 83735; 84439; 84443; 84484; 85025; 93005; 93010; 99285-25

== ENCOUNTER 2025-08-11 17:44 | Emergency (ER) | payer MEDICARE, OTHER ==
[~2025-08-11] VITALS: Ht 167.6 cm; Wt 102.1 kg
[2025-08-11 21:34] VITALS: BP 118/85
[2025-08-11] MEDS ORDERED: RX Prepack Albuterol 1 PREPACK/6.7 GM INH UD ONE (22:35)
== END 2025-08-11 22:55 | disposition home or self-care (01) ==
LOC: ER 17:44
DX: R07.89 Other chest pain (principal); R06.02 Shortness of breath; J45.909 Unspecified asthma, uncomplicated; E03.9 Hypothyroidism, unspecified; E11.9 Type 2 diabetes mellitus without complications; Z88.2 Allergy status to sulfonamides; Z88.8 Allergy status to other drugs, medicaments and biological substances; Z88.1 Allergy status to other antibiotic agents; Z79.890 Hormone replacement therapy; Z87.891 Personal history of nicotine dependence
CPT/HCPCS: 71260; 84484; 93005; 93010; 99285-25; A9270; Q9967

== ENCOUNTER 2025-08-24 15:54 | Emergency (ER) | payer MEDICARE, OTHER ==
[~2025-08-24] VITALS: Ht 167.6 cm; Wt 102.1 kg
[2025-08-24] MEDS ORDERED: NS 1,000 ML IV SCH (16:30)
[2025-08-24] MEDS ORDERED: Ondansetron HCl 2 MG / ML 2ML Vial IV ONE (16:30)
[2025-08-24 16:36] LABS: BASOPHILS ABSOLUTE AUTO 0.07 K/mm3 (0.00-0.23); BASOPHILS PERCENT AUTO 1 % (0-2); EOSINOPHILS ABSOLUTE AUTO 0.13 K/mm3 (0.00-0.68); EOSINOPHILS PERCENT AUTO 2 % (0-6); Hematocrit 37.4 % (33.0-51.0); Hemoglobin 12.3 g/dL (11.5-16.0); IMMATURE GRAN ABSOLUTE AUTO 0.01 K/mm3 (0.00-0.10); IMMATURE GRAN PERCENT AUTO 0 % (0-1); LYMPHOCYTES ABSOLUTE AUTO 2.58 K/mm3 (0.84-5.20); LYMPHOCYTES PERCENT AUTO 34 % (21-46); MONOCYTES ABSOLUTE AUTO 0.49 K/mm3 (0.16-1.47); MONOCYTES PERCENT AUTO 6 % (4-13); Mean Corpuscular HGB Conc 32.9 g/dL (31.5-36.5); Mean Corpuscular Volume 85 fL (80-100); NEUTROPHILS ABSOLUTE AUTO 4.36 K/mm3 (1.96-9.15); NEUTROPHILS PERCENT AUTO 57 % (41-73); NRBC ABSOLUTE 0.00 K/mm3 (0.00-0.02); NRBC Auto 0.0 /100 WBC (0.0-0.2); Platelet Count 172 K/mm3 (150-400); RDW Coefficient Variation 14.0 % (11.7-14.2); RDW Standard Deviation 43.5 fL (35.1-46.3)
[2025-08-24] MEDS ORDERED: Lidocaine 2% Viscous Soln 15 ML UDC PO ONE (16:40)
[2025-08-24 16:57] LABS: Alanine Aminotransfer (ALT/SGP 26.0 U/L (12-78); Albumin, Blood 3.8 g/dL (3.4-5.0); Albumin/Globulin Ratio 1.2 (0.8-1.8); Anion Gap 7.0 mmol/L (3-11); Aspartate Aminotrans (AST/SGOT 19.0 U/L (12-37); Bilirubin, Total 0.3 mg/dL (0.1-1.0); Blood Urea Nitrogen 8.0 mg/dL (8-24); CO2, Blood 27.0 mmol/L (21-32); Calcium, Blood 8.5 mg/dL (8.5-10.1); Chloride, Blood 106.0 mmol/L (98-108); Creatinine, Blood 0.74 mg/dL (0.40-1.00); Globulin, Blood 3.3 g/dL (2.2-4.0); Glucose, Blood 89.0 mg/dL (70-99); Potassium, Blood 3.4 mmol/L (3.5-5.5); Sodium, Blood 137.0 mmol/L (136-145); Total Protein, Blood 7.1 g/dL (6.4-8.2)
[2025-08-24] MEDS ORDERED: Morphine Sulfate 4 MG/1 ML Injection IV ONE (17:50)
[2025-08-24 18:08] VITALS: BP 141/91
== END 2025-08-24 19:25 | disposition home or self-care (01) ==
LOC: ER 15:54
PROVIDERS: Student in an Organized Health Care Education/Training Program
DX: R07.89 Other chest pain (principal); E11.9 Type 2 diabetes mellitus without complications; E03.9 Hypothyroidism, unspecified; Z87.891 Personal history of nicotine dependence; Z98.84 Bariatric surgery status; Z88.2 Allergy status to sulfonamides; Z88.1 Allergy status to other antibiotic agents; Z88.8 Allergy status to other drugs, medicaments and biological substances; Z79.890 Hormone replacement therapy; Z79.899 Other long term (current) drug therapy
CPT/HCPCS: 71046; 80053; 83690; 84484; 84702; 85025; 85379; A9270; J2270; J2405; J7030

== ENCOUNTER 2025-09-17 16:07 | Emergency (ER) | payer MEDICARE, OTHER ==
[~2025-09-17] VITALS: Ht 167.6 cm; Wt 98.9 kg
[2025-09-17 16:32] VITALS: BP 131/92
[2025-09-17] MEDS ORDERED: NS 1,000 ML IV SCH (16:35)
[2025-09-17] MEDS ORDERED: Metoclopramide HCl 5MG / ML 2ML Vial IV ONE (16:35)
[2025-09-17 16:59] LABS: BASOPHILS ABSOLUTE AUTO 0.09 K/mm3 (0.00-0.23); BASOPHILS PERCENT AUTO 1 % (0-2); EOSINOPHILS ABSOLUTE AUTO 0.11 K/mm3 (0.00-0.68); EOSINOPHILS PERCENT AUTO 1 % (0-6); Hematocrit 36.3 % (33.0-51.0); Hemoglobin 12.2 g/dL (11.5-16.0); IMMATURE GRAN ABSOLUTE AUTO 0.04 K/mm3 (0.00-0.10); IMMATURE GRAN PERCENT AUTO 1 % (0-1); LYMPHOCYTES ABSOLUTE AUTO 2.78 K/mm3 (0.84-5.20); LYMPHOCYTES PERCENT AUTO 32 % (21-46); MONOCYTES ABSOLUTE AUTO 0.52 K/mm3 (0.16-1.47); MONOCYTES PERCENT AUTO 6 % (4-13); Mean Corpuscular HGB Conc 33.6 g/dL (31.5-36.5); Mean Corpuscular Volume 85 fL (80-100); NEUTROPHILS ABSOLUTE AUTO 5.21 K/mm3 (1.96-9.15); NEUTROPHILS PERCENT AUTO 60 % (41-73); NRBC ABSOLUTE 0.00 K/mm3 (0.00-0.02); NRBC Auto 0.0 /100 WBC (0.0-0.2); Platelet Count 207 K/mm3 (150-400); RDW Coefficient Variation 13.2 % (11.7-14.2); RDW Standard Deviation 41.1 fL (35.1-46.3)
[2025-09-17 17:33] LABS: Alanine Aminotransfer (ALT/SGP 20.0 U/L (12-78); Albumin, Blood 3.6 g/dL (3.4-5.0); Albumin/Globulin Ratio 1.1 (0.8-1.8); Anion Gap 7.0 mmol/L (3-11); Aspartate Aminotrans (AST/SGOT 13.0 U/L (12-37); Bilirubin, Total 0.2 mg/dL (0.1-1.0); Blood Urea Nitrogen 10.0 mg/dL (8-24); CO2, Blood 27.0 mmol/L (21-32); Calcium, Blood 8.3 mg/dL (8.5-10.1); Chloride, Blood 109.0 mmol/L (98-108); Creatinine, Blood 0.9 mg/dL (0.40-1.00); Globulin, Blood 3.3 g/dL (2.2-4.0); Glucose, Blood 91.0 mg/dL (70-99); Potassium, Blood 3.8 mmol/L (3.5-5.5); Sodium, Blood 139.0 mmol/L (136-145); Total Protein, Blood 6.9 g/dL (6.4-8.2)
== END 2025-09-17 17:18 | disposition home or self-care (01) ==
LOC: ER 16:07
PROVIDERS: Emergency Medicine
DX: R07.9 Chest pain, unspecified (principal); R42 Dizziness and giddiness; Z53.21 Procedure and treatment not carried out due to patient leaving prior to being seen by health care provider
CPT/HCPCS: 80053; 84484; 85025; 93005; 93010; 96374; 99284-25; A9270; J2765; J7030